=== PATIENT | female | born 1940 | race American Indian/Alaskan Native ===

== ENCOUNTER 2017-03-04 17:36 | Inpatient (IN) | payer MEDICARE, OTHER ==
--- NOTE | 2017-03-04 18:31 | ED PDOC ---
Arrival/HPI - General Historian: Patient - History of Present Illness Time/Duration: 1 week Symptom Onset: Gradual Symptom Course: Worsening Quality: Aching, Tightness Severity Level: 3 - General Chief Complaint: Lower Extremity Problem/Injury Time Seen by Provider: 03/04/17 17:44 - History of Present Illness Narrative History of Present Illness (Text): 03/04/17 18:28 76-year-old female presents today with a one-week history of right leg pain and swelling. Patient denies any recent trauma or injury. Denies numbness weakness or tingling in the extremity. Patient states she was seen by her orthopedist for right leg pain. Patient states the pain started one week ago when she went to stand up. Patient states she felt a pain in the calf at that time. Patient states over the past week the pain has worsened and the leg has become more and more swollen. The orthopedist prescribed ultrasound for the right leg. Patient was sent into the emergency room for evaluation. Patient states the pain is bearable at this point and does not want any medications for pain at present time. Patient denies a history of recent travel. Patient states she is very active at home. She denies smoking states she quit 17 years ago. Denies dizziness or weakness. No chest pain or shortness of breath. Denies fevers or chills. (Audra James) Past Medical History - Provider Review Nursing Documentation Reviewed: Yes - Travel History Have you recently traveled outside [place] w/in the past 3 mons?: No - Tetanus Immunization Tetanus Immunization: Unknown - Cardiac Hx Cardiac Disorders: No - Pulmonary Hx Chronic Obstructive Pulmonary Disease (COPD): Yes - Neurological Hx Neurological Disorder: No - HEENT Hx HEENT Disorder: No Hx Sinusitis: Yes - Renal Hx Renal Disorder: No - Endocrine/Metabolic Hx Endocrine Disorders: No - Hematological/Oncological Hx Blood Disorders: No - Integumentary Hx Dermatological Disorder: No - Musculoskeletal/Rheumatological Hx Back Pain: Yes - Gastrointestinal Hx Gastroesophageal Reflux: Yes - Genitourinary/Gynecological Hx Genitourinary Disorders: No - Psychiatric Hx Anxiety: Yes Hx Substance Use: No - Surgical History Hx Cholecystectomy: Yes Hx Tubal Ligation: Yes - Anesthesia Hx Anesthesia: Yes Hx Anesthesia Reactions: No Family/Social History - Physician Review Nursing Documentation Reviewed: Yes Family/Social History: Unknown Family HX Smoking Status: Former Smoker Hx Alcohol Use: No Hx Substance Use: No Allergies/Home Meds Allergies/Adverse Reactions: Allergies latex Allergy (Verified 02/17/17 15:01) Home Medications: Home Meds Medication Instructions Recorded Confirmed Amitriptyline [Elavil] 10 mg PO DAILY PRN 03/04/17 03/04/17 Ca/D3/Mag#11/Zinc/Propulsion Motor [employer] Generator Rep[employer]r/[place]/Bor 1 each PO QWK 03/04/17 03/04/17 [Caltrate 600+D Plus Tablet] Dexlansoprazole [Dexilant] 60 mg PO DAILY 03/04/17 03/04/17 Docusate [Colace] 100 mg PO BID 03/04/17 03/04/17 Fluticasone/Salmeterol 250/50 1 puff IH Q12 03/04/17 03/04/17 [Advair Diskus] Lactobacillus Acidophilus 1 each PO DAILY 03/04/17 03/04/17 [Acidophilus] Meclizine [Antivert] 12.5 mg PO DAILY PRN 03/04/17 03/04/17 Montelukast [Singulair] 10 mg PO DAILY PRN 03/04/17 03/04/17 Multivitamin with Folic Acid [One 400 mcg PO QWK 03/04/17 03/04/17 Daily Multivitamin Tablet] Polyethylene Glycol 3350 [Miralax] 17 gm PO QOTHERDAY 03/04/17 03/04/17 Sertraline [Zoloft] 50 mg PO DAILY 03/04/17 03/04/17 valACYclovir [Valtrex] 500 mg PO DAILY 03/04/17 03/04/17 Review of Systems - Review of Systems Constitutional: absent: Fatigue, Fevers Respiratory: absent: SOB, Cough Cardiovascular: absent: Chest Pain, Palpitations Gastrointestinal: absent: Abdominal Pain, Nausea, Vomiting Genitourinary Female: absent: Dysuria Musculoskeletal: Arthralgias Skin: absent: Rash, Pruritis Neurological: absent: Headache, Dizziness Psychiatric: absent: Anxiety, Depression Physical Exam Vital Signs Reviewed: Yes Temperature: Afebrile Blood Pressure: Normal Pulse: Regular Respiratory Rate: Normal Appearance: Positive for: Well-Appearing, Non-Toxic, Comfortable Pain Distress: None Mental Status: Positive for: Alert and Oriented X 3 - Systems Exam Head: Present: Atraumatic Mouth: Present: Moist Mucous Membranes Neck: Present: Normal Range of Motion Respiratory/Chest: Present: Clear to Auscultation, Good Air Exchange. No: Respiratory Distress, Accessory Muscle Use Cardiovascular: Present: Regular Rate and Rhythm, Normal S1, S2. No: Murmurs Lower Extremity: Present: Edema, CALF TENDERNESS, Tenderness (right leg; + edema and tense calf, no erythema; pain with passive ROM of ankle. edema extends into ankle. no palpable dorsalis pedis pulse on right foot. strong dorsalis pedis pulse on left foot. slightly decreased sensation to right foot/ leg. ), Swelling, Capillary Refill < 2 s, Other. No: Erythema, Deformity Neurological: Present: GCS=15, Speech Normal, Normal Sensory Function Skin: Present: Warm, Dry, Normal Color Psychiatric: Present: Alert, Oriented x 3 Vital Signs Temp Pulse Resp BP Pulse Ox 03/05/17 02:15 72 18 117/64 97 03/05/17 00:18 78 17 179/74 H 97 03/04/17 21:07 80 20 153/80 H 96 03/04/17 17:52 98.3 F 87 20 119/86 98 Medical Decision Making ED Course and Treatment: 03/05/17 02:07 Case discussed with patient's orthopedist, , who advices to measure intra-compartmental pressure using the [employer] pressure monitor. Patient tolerated the procedure without any difficulty. There was no evidence of compartmental syndrome as her pressure was 13. Patient will be placed on observation at [facility] [place] service. (Neeraj Pinzon) 03/04/17 18:32 76yr old female with 1 week of right leg pain and swelling. + calf tenderness. worsening pain and swelling over past 3 days. Venous duplex; no dvt case discussed with dr. rae who saw patient in office today and ordered duplex outpatient which showed hematoma to calf. pt with slightly decreased sensation, + edematous and tense right calf, weak pulse. pain with passive flexion. case discussed again with dr rea; he is concerned for possible development of compartment syndrome in case without fracture. he suggests CTA of lower leg for possible vascular injury case discussed with salesperson surgical appliances who saw patient at bedside; dr. araceli musa discussed case with dr. haji who spoke with dr. Gloria. percocet given for pain. Ct angio right lower leg; Impression: No aneurysmal dilatation. No dissection. No significant inflow disease 3 vessel runoff below the right knee with single vessel runoff into the right foot Three-vessel runoff below the left knee with 2 vessel runoff into the left foot discussed CT results with the radiologist dr. weaver. [employer] pressure monitor was used to check intra-compartmental pressure in right lower leg. pressure 13. no evidence of compartment syndrome. all results were discussed in depth with dr. rea; he would like patient to be admitted observational status to hospitalist service with him on consult. pt reassessment pt now c/o epigastric pain, burning after percocet; pepcid given. pt states she hasnt eaten in hours and percocet always upsets the stomach. case discussed with dr. lai; accepts observational status admission for right leg pain/swelling. impression; leg pain admit observational status to med/surg. (Audra James) - Lab Interpretations Lab Results: 03/04/17 19:45 03/04/17 19:45 Lab Results 03/04/17 21:10: Blood Type Confirm O NEGATIVE 03/04/17 20:31: Total Creatine Kinase 71 03/04/17 19:45: WBC 10.2, RBC 4.00, Hgb 11.8 L, Hct 35.5 L, MCV 88.8, MCH 29.5, MCHC 33.2, RDW 13.9, Plt Count 399, MPV 9.9, Gran % 58.5, Lymph % (Auto) 30.7, Wirt % (Auto) 7.5 H, Eos % (Auto) 2.3, Baso % (Auto) 1.0, Gran # 5.97, Lymph # 3.1, Wirt # 0.8 H, Eos # 0.2, Baso # 0.10 03/04/17 19:45: Blood Type O NEGATIVE, Antibody Screen Negative, BBK History Checked No verified bt 03/04/17 19:45: Sodium 141, Potassium 3.7, Chloride 105, Carbon Dioxide 26, Anion Gap 14, BUN 12, Creatinine 0.7, Est GFR ( Amer) > 60, Est GFR (Non- Af Amer) > 60, Random Glucose 101, Calcium 8.8, Total Bilirubin 0.3, AST 39, ALT 28, Alkaline Phosphatase 111, Total Protein 8.1, Albumin 3.9, Globulin 4.2, Albumin/Globulin Ratio 0.9 L 03/04/17 19:45: PT 10.4, INR 0.96, APTT 29.1 - RAD Interpretation Radiology Orders: 03/04/17 18:13 DUPLEX LOWER EXTRM VEIN RIGHT [US] Stat 03/04/17 19:50 CHEST PORTABLE [RAD] Stat 03/04/17 21:28 EXT LOWER WITH CONTRAST RIGHT [CT] Stat - Medication Orders Current Medication Orders: Discontinued Medications Famotidine (Pepcid) 20 mg IVP STAT STA Stop: 03/05/17 02:04 Last Admin: 03/05/17 02:14 Dose: 20 mg Ondansetron HCl (Zofran Odt) 4 mg PO STAT STA Stop: 03/05/17 00:11 Last Admin: 03/05/17 00:25 Dose: 4 mg Oxycodone/Acetaminophen (Percocet 5/325 Mg Tab) 1 tab PO STAT STA Stop: 03/05/17 00:11 Last Admin: 03/05/17 00:25 Dose: 1 tab Disposition/Present on Arrival - Present on Arrival Any Indicators Present on Arrival: No History of DVT/PE: No History of Uncontrolled Diabetes: No Urinary Catheter: No History of Decub. Ulcer: No History Surgical Site Infection Following: None - Disposition Have Diagnosis and Disposition been Completed?: Yes Disposition Time: 02:30 Patient Plan: Observation - Disposition Diagnosis: Leg pain Disposition: HOSPITALIZED Condition: FAIR
[2017-03-04 20:02] LABS: EOS # 0.2 (0.0-0.7); EOS % 2.3 % (1.5-5.0); GRAN # 5.97 (1.4-6.5); GRAN % 58.5 % (50.0-68.0); HEMOGLOBIN 11.8 gm/dL (12.0-16.0); LYMPH # 3.1 (1.2-3.4); LYMPH % 30.7 % (22.0-35.0); MEAN CELL VOLUME 88.8 fL (80.0-105.0); MEAN CORPUSCULAR HEMOGLOBIN 29.5 pg (25.0-35.0); MEAN CORPUSCULAR HGB CONC 33.2 g/dl (31.0-37.0); MEAN PLATELET VOLUME 9.9 fl (7.0-11.0); MONO # 0.8 (0.1-0.6); MONO % 7.5 % (1.0-6.0); PLATELET COUNT 399 10^3/uL (120.0-450.0); RED CELL DISTRIBUTION WIDTH 13.9 % (11.5-14.5); WHITE BLOOD COUNT 10.2 10^3/ul (4.5-11.0)
[2017-03-04 20:06] LABS: ALB/GLOB RATIO 0.9 (1.1-1.8); ALBUMIN 3.9 g/dL (3.0-4.8); ALT/SGPT 28 U/L (7-56); AST/SGOT 39 U/L (15-39); BLOOD UREA NITROGEN 12 mg/dL (7-21); GFR AFRICAN-AMERICAN > 60; GFR NON-AFRICAN AMERICAN > 60
[2017-03-04 20:09] LABS: CALCIUM 8.8 mg/dL (8.4-10.5)
[2017-03-04 20:15] LABS: INR 0.96 (0.93-1.08); PARTIAL THROMBOPLASTIN TIME 29.1 Seconds (23.7-30.8); PROTHROMBIN TIME 10.4 Seconds (9.9-11.8)
--- NOTE | 2017-03-04 20:46 | CARD ---
APPROVED REPORT EKG Measurement Heart [id number] <Conclusion> Normal sinus rhythm Normal ECG
[2017-03-05] MEDS ORDERED: Oxycodone/Acetaminophen 5/325 mg Tab PO STA (00:10)
--- NOTE | 2017-03-05 03:17 | CP.PCM.HP ---
<MAE MOSLEY - Last Filed: 03/05/17 03:03> History of Present Illness - History of Present Illness History of Present Illness: 76 yo F with PMHx of gastritis/GERD, sinusitis, and COPD was see in office by Dr. Mcgraw and instructed pt to go to ED for concerns of compartment syndrome without fracture. Pt c/o right leg pain localized in the calf region and swelling for the past week of insidious onset. Pt denied any LE numbness and weakness. Pt states that the pain and swelling has progressively worsened over the last week, but is active and ambulating at home. Prior to being examined, venous doppler US was ordered and was negative for DVT. RLE pressure was also obtained and was normal. Pt is comlaining of some abdominal pain in the ED due to taking Percocet on an empty stomach. Pain relieved with PO food intake. Pt denied CP, SOB, n/v/d, chills, or paresthesias. PMHx: gastritis/GERD, sinusitis, COPD Surg: cholecystectomy, tubal ligation FHx: Bladder cancer All: latex SH: Social EtOH use, Denied tobacco or illicit drug use Meds: reviewed and as per chart Present on Admission - Present on Admission Any Indicators Present on Admission: No Review of Systems - Review of Systems All systems: reviewed and no additional remarkable complaints except (12 point ROS negative other than what is stated in HPI) Past Patient History - Tetanus Immunizations Tetanus Immunization: Unknown - Past Social History Smoking Status: Former Smoker - CARDIAC Hx Cardiac Disorders: No - PULMONARY Hx Chronic Obstructive Pulmonary Disease (COPD): Yes - NEUROLOGICAL Hx Neurological Disorder: No - HEENT Hx HEENT Problems: No Hx Sinusitis: Yes - RENAL Hx Chronic Kidney Disease: No - ENDOCRINE/METABOLIC Hx Endocrine Disorders: No - HEMATOLOGICAL/ONCOLOGICAL Hx Blood Disorders: No - INTEGUMENTARY Hx Dermatological Problems: No - MUSCULOSKELETAL/RHEUMATOLOGICAL Hx Back Pain: Yes - GASTROINTESTINAL Hx Gastroesophageal Reflux: Yes - GENITOURINARY/GYNECOLOGICAL Hx Genitourinary Disorders: No - PSYCHIATRIC Hx Anxiety: Yes Hx Substance Use: No - SURGICAL HISTORY Hx Cholecystectomy: Yes Hx Tubal Ligation: Yes - ANESTHESIA Hx Anesthesia: Yes Hx Anesthesia Reactions: No Meds Allergies/Adverse Reactions: Allergies Allergy/AdvReac Type Severity Reaction Status Date / Time latex Allergy Verified 02/17/17 15:01 Physical Exam - Constitutional Appears: No Acute Distress - Head Exam Head Exam: ATRAUMATIC, NORMOCEPHALIC - Eye Exam Eye Exam: EOMI, PERRL - ENT Exam ENT Exam: Mucous Membranes Moist - Neck Exam Neck exam: Positive for: Full Rom. Negative for: Lymphadenopathy, Tenderness, Thyromegaly - Respiratory Exam Respiratory Exam: Clear to Auscultation Bilateral. absent: Rales, Rhonchi, Wheezes - Cardiovascular Exam Cardiovascular Exam: RRR, +S1, +S2. absent: Diastolic murmur, Gallop, Rubs, Systolic Murmur - GI/Abdominal Exam GI & Abdominal Exam: Soft. absent: Distended, Guarding, Rebound, Tenderness - Extremities Exam Additional comments: 4cm area of bruising on R gastroc, RLE swelling, R gastroc tender to palpation, b/l DP palpable, sensation intact b/l LE - Neurological Exam Neurological exam: Alert, Oriented x3 - Skin Skin Exam: Dry, Intact, Normal Color, Warm Results - Vital Signs Recent Vital Signs: Last Vital Signs Temp 98.3 F 03/04/17 17:52 Pulse 72 03/05/17 02:15 Resp 18 03/05/17 02:15 BP 117/64 03/05/17 02:15 Pulse Ox 97 03/05/17 02:15 - Labs Result Diagrams: 03/04/17 19:45 03/04/17 19:45 Assessment & Plan - Assessment and Plan (Free Text) Assessment: 76 yo F with PMHx of GERD, COPD, and sinusitis will be admitted to observation for evaluation and treatment for hematoma r/o compartment syndrome of the RLE. 1. Hematoma r/o compartment syndrome, right lower leg -Ortho Consulted, will see pt in AM -No evidence of compartmental syndrome, pressure was 13 -Venous duplex showed no evidence of DVT -CT Angio showed no aneurysmal dilatation, dissection, or significant inflow disease -Tylenol, Toradol, Morphine for mild, mod, and severe pain 2. Gastritis -Maalox PRN -Protonix 40 mg daily -Avoid inciting medications -HHD 3. COPD -Cont Singulair and brovana -Maintain O2 sat >90% 4. GI/DVT PPx -Protonix -Ambulate Pt seen and discussed in detail with Dr. Richardson. <Deborah Richardson - Last Filed: 03/05/17 03:58> Results - Vital Signs Recent Vital Signs: Last Vital Signs Temp 98.3 F 03/04/17 17:52 Pulse 72 03/05/17 02:15 Resp 18 03/05/17 02:15 BP 117/64 03/05/17 02:15 Pulse Ox 97 03/05/17 02:15 - Labs Result Diagrams: 03/04/17 19:45 03/04/17 19:45 Attending/Attestation - Attestation I have personally seen and examined this patient.: Yes I have fully participated in the care of the patient.: Yes I have reviewed all pertinent clinical information: Yes Notes (Text): 03/05/17 03:58 Patient was seen when she was in bed # 9 in the ER. Agree with history, physical examination,assessment and plan.
[2017-03-05] MEDS ORDERED: Alum-Mag Hydrox-Simethicone Susp (30 mL) PO STA (03:19)
[2017-03-05 04:05] LABS: MAGNESIUM 1.8 mg/dL (1.7-2.2)
[2017-03-05 04:19] LABS: TROPONIN I < 0.01 ng/mL
[2017-03-05 07:12] VITALS: BMI 32.6
--- NOTE | 2017-03-05 07:48 | RAD ---
HISTORY: leg pain COMPARISON: No prior. FINDINGS: LUNGS: The lungs are well inflated and. PLEURA: No significant pleural effusion identified, no pneumothorax apparent. CARDIOVASCULAR: Normal. OSSEOUS STRUCTURES: No significant abnormalities. VISUALIZED UPPER ABDOMEN: Normal. OTHER FINDINGS: None. IMPRESSION: No active pulmonary disease.
[2017-03-05] MEDS: Arformoterol 15 mcg/2 ml Inh Sol IH SCH ×2 (08:20→19:53)
[2017-03-05] MEDS: Budesonide 0.5 mg/2 ml Inhal Susp UD IH SCH ×2 (08:20→19:53)
[2017-03-05] MEDS: Pantoprazole 40 mg EC Tab PO SCH (09:29)
[2017-03-05] MEDS: POLYETHYLENE GLYCOL 3350 17 GM/Dose PACKET PO SCH (09:29)
[2017-03-05] MEDS: Lactobacillus Acidophilus 500 MU Cap PO SCH (09:29)
[2017-03-05] MEDS: Enoxaparin 40 mg Syringe SC SCH (09:31)
--- NOTE | 2017-03-05 09:53 | US ---
PROCEDURE: Right lower extremity venous US HISTORY: Leg pain and swelling. Evaluate for DVT. PHYSICIAN(S): Juno Hyatt M.D. TECHNIQUE: Duplex sonography and color-flow Doppler with graded compression were used to evaluate the deep venous system of the right lower extremity. The tibial veins are not well seen. FINDINGS: The visualized deep venous system of the right lower extremity is sonographically normal and compressible. Normal waveforms and augmentation are seen. There is no sonographic evidence for deep venous thrombosis in the visualized segments of the right lower extremity. IMPRESSION: 1. No sonographic evidence for deep venous thrombosis in the visualized segments of the right lower extremity.
[2017-03-05] MEDS ORDERED: Fluticasone-Salmeterol 250-50mcg Diskus IH SCH (10:00)
[2017-03-05] MEDS ORDERED: [UNRECOGNIZED DRUG - OTHER] PO SCH (10:00)
[2017-03-05] MEDS ORDERED: [UNRECOGNIZED DRUG - OTHER] PO SCH (10:00)
[2017-03-05] MEDS ORDERED: MULTIVITAMIN WITH FOLIC ACID PO SCH (10:00)
--- NOTE | 2017-03-05 15:13 | CP.PCM.PN ---
Subjective - Date & Time of Evaluation Date of Evaluation: 03/05/17 Time of Evaluation: 15:07 - Subjective Subjective: Pt awake, alert. Ambulating with cane. Complaining of right calf pain. Pt denies any numbness or tingling in right lower extremity. Denies any weakness. Afebrile, VSS RLE: calf relatively soft but tender NVI with 5/5 strength in all muscle groups no sensory deficits foot warm and well perfused knee with no obvious effusion posterior tenderness to palpation CT angio did not show any evidence of acute vascular compromise Plan: Exam not consistent with compartment syndrome. May be secondary to ruptured popliteal cyst? Will order MRI of R knee and calf Objective - Vital Signs/Intake and Output Vital Signs (last 24 hours): Temp Pulse Resp BP Pulse Ox 98.8 F 90 20 141/84 94 L 03/05/17 07:30 03/05/17 08:24 03/05/17 07:30 03/05/17 07:30 03/05/17 07:30 Intake and Output: 03/05/17 03/05/17 06:59 18:59 Intake Total 900 Balance 900 - Medications Medications: Current Medications Acetaminophen (Tylenol 325mg Tab) 650 mg PO Q6H PRN PRN Reason: Pain, Mild (1-3) Last Admin: 03/05/17 09:37 Dose: 650 mg Amitriptyline HCl (Elavil) 10 mg PO DAILY PRN PRN Reason: GI distress Arformoterol Tartrate (Brovana) 15 mcg IH [id number] [facility] Last Admin: 03/05/17 08:20 Dose: 15 mcg Budesonide (Pulmicort Respules) 0.5 mg IH [id number] [facility] Last Admin: 03/05/17 08:20 Dose: 0.5 mg Docusate Sodium (Colace) 100 mg PO BID [facility] Last Admin: 03/05/17 09:29 Dose: 100 mg Enoxaparin Sodium (Lovenox) 40 mg SC DAILY [facility] PRN Reason: Protocol Last Admin: 03/05/17 09:31 Dose: 40 mg Ketorolac Tromethamine (Toradol) 15 mg IVP Q6H PRN PRN Reason: Pain, moderate (4-7) Lactobacillus Acidophilus (Bacid Acidophilus) 1 cap PO DAILY [facility] Last Admin: 03/05/17 09:29 Dose: 1 cap Meclizine HCl (Antivert) 12.5 mg PO DAILY PRN PRN Reason: Dizziness Montelukast Sodium (Singulair) 10 mg PO DAILY PRN PRN Reason: Shortness of Breath Morphine Sulfate (Morphine) 4 mg IVP Q6H PRN PRN Reason: Pain, severe (8-10) Non-Formulary Medication (Ca/D3/Mag#11/Zinc/Hospice Home Care Coordinator/[place]/Bor [Caltrate 600+D Plus Tablet]) 1 each PO QWK [facility] Last Admin: 03/05/17 09:31 Dose: Not Given Non-Formulary Medication (Multivitamin With Folic Acid [One Daily Multivitamin Tablet]) 400 mcg PO QWK [facility] Last Admin: 03/05/17 09:32 Dose: Not Given Pantoprazole Sodium (Protonix Ec Tab) 40 mg PO ACB [facility] Last Admin: 03/05/17 09:29 Dose: 40 mg Polyethylene Glycol (Miralax) 17 gm PO QOTHERDAY [facility] Last Admin: 03/05/17 09:29 Dose: 17 gm Sertraline HCl (Zoloft) 50 mg PO DAILY [facility] Last Admin: 03/05/17 09:29 Dose: 50 mg Valacyclovir HCl (Valtrex) 500 mg PO DAILY [facility] PRN Reason: Protocol Last Admin: 03/05/17 09:32 Dose: 500 mg - Labs Labs: PT 10.4 Seconds (9.9-11.8) 03/04/17 19:45 INR 0.96 (0.93-1.08) 03/04/17 19:45 APTT 29.1 Seconds (23.7-30.8) 03/04/17 19:45
[2017-03-06] MEDS: Arformoterol 15 mcg/2 ml Inh Sol IH SCH ×2 (07:28→19:20)
[2017-03-06] MEDS: Budesonide 0.5 mg/2 ml Inhal Susp UD IH SCH ×2 (07:28→19:20)
[2017-03-06 08:05] LABS: HEMOGLOBIN 12.3 gm/dL (12.0-16.0); MEAN CELL VOLUME 89.5 fL (80.0-105.0); MEAN CORPUSCULAR HEMOGLOBIN 29.2 pg (25.0-35.0); MEAN CORPUSCULAR HGB CONC 32.6 g/dl (31.0-37.0); MEAN PLATELET VOLUME 10.2 fl (7.0-11.0); RBC 4.21 10^6/uL (3.5-6.1); RED CELL DISTRIBUTION WIDTH 14.3 % (11.5-14.5)
[2017-03-06 08:15] LABS: ALB/GLOB RATIO 0.9 (1.1-1.8); ALBUMIN 4.2 g/dL (3.0-4.8); ALT/SGPT 34 U/L (7-56); AST/SGOT 48 U/L (15-39); BLOOD UREA NITROGEN 9 mg/dL (7-21); GFR AFRICAN-AMERICAN > 60; GFR NON-AFRICAN AMERICAN > 60
[2017-03-06] MEDS ORDERED: Gadodiamide 287 MG/ML VIAL (15ML) IV ONE (10:16)
[2017-03-06] MEDS: Lactobacillus Acidophilus 500 MU Cap PO SCH (11:07)
[2017-03-06] MEDS: Pantoprazole 40 mg EC Tab PO SCH (11:07)
[2017-03-06] MEDS: Enoxaparin 40 mg Syringe SC SCH (11:07)
--- NOTE | 2017-03-06 15:30 | MRI ---
PROCEDURE: MRI Right Knee HISTORY: Pain. COMPARISON: None available. TECHNIQUE: Multiecho multiplanar sequences were performed through the right knee. FINDINGS: ANTERIOR CRUCIATE LIGAMENT:: Intact. POSTERIOR CRUCIATE LIGAMENT:: Intact. MEDIAL MENISCUS:: Intact. LATERAL MENISCUS:: There is a linear tear in the anterior horn of the lateral meniscus MEDIAL COLLATERAL LIGAMENT:: Intact. LATERAL COLLATERAL LIGAMENT COMPLEX:: Intact. QUADRICEPS TENDON:: Intact. PATELLAR TENDON:: Intact. CARTILAGE:: Intact. JOINT FLUID:: Small joint effusion. There is a synovial cyst posterior to the PCL measuring 29 mm in height 15 mm AP and 10 mm wide. OSSEOUS STRUCTURES:: Intact. OTHER FINDINGS: There is muscular edema and a focal hemorrhage in the medial head of the gastrocnemius. This is best seen on axial image 34 series 4 IMPRESSION: Linear tear in the anterior horn of the lateral meniscus. Synovial cyst posterior to the PCL. Muscular edema and focal hemorrhage in the medial head of the gastrocnemius
--- NOTE | 2017-03-06 15:38 | MRI ---
PROCEDURE: MRI of the right lower extremity with and without contrast HISTORY: Evaluate hematoma of right calf COMPARISON: TECHNIQUE: MRI of the right lower extremity was performed in multiple planes using multiple pulse sequences including postcontrast imaging. 15 cc of Omniscan were injected FINDINGS: The study shows a hematoma in the medial head of the gastrocnemius measuring 18 mm AP by 40 mm wide by 96 mm in length. There is surrounding edema. There is no evidence of abnormal enhancement. The hematoma is seen on the surface of the muscle just beneath the fascia layer. There is also some fascial edema and subcutaneous edema IMPRESSION: Hematoma in the medial head of the gastrocnemius with extensive surrounding edema
--- NOTE | 2017-03-06 21:40 | CP.PCM.PN ---
<RACHANA JOSEPH - Last Filed: 03/06/17 21:37> Subjective - Date & Time of Evaluation Date of Evaluation: 03/06/17 Time of Evaluation: 10:00 - Subjective Subjective: Medicine Progress Note: Pt see and assessed at bedside. Pt had no new complaints this AM. She reports continued pain in her RLE but that the swelling has gone down, in her opinion. She denies fevers, headaches, changes in vision, shortness of breath, chest pain , abdominal pain, N/V or diarrhea. Objective - Vital Signs/Intake and Output Vital Signs (last 24 hours): Temp Pulse Resp BP Pulse Ox 99.0 F 74 20 142/82 96 03/06/17 16:00 03/06/17 16:00 03/06/17 16:00 03/06/17 16:00 03/06/17 16:00 Intake and Output: 03/06/17 03/07/17 18:59 06:59 Intake Total 600 Balance 600 - Medications Medications: Current Medications Acetaminophen (Tylenol 325mg Tab) 650 mg PO Q6H PRN PRN Reason: Pain, Mild (1-3) Last Admin: 03/05/17 09:37 Dose: 650 mg Amitriptyline HCl (Elavil) 10 mg PO DAILY PRN PRN Reason: GI distress Arformoterol Tartrate (Brovana) 15 mcg IH [id number] [facility] Last Admin: 03/06/17 19:20 Dose: 15 mcg Budesonide (Pulmicort Respules) 0.5 mg IH [id number] [facility] Last Admin: 03/06/17 19:20 Dose: 0.5 mg Docusate Sodium (Colace) 100 mg PO BID [facility] Last Admin: 03/06/17 17:12 Dose: 100 mg Ketorolac Tromethamine (Toradol) 15 mg IVP Q6H PRN PRN Reason: Pain, moderate (4-7) Last Admin: 03/06/17 11:08 Dose: 15 mg Lactobacillus Acidophilus (Bacid Acidophilus) 1 cap PO DAILY [facility] Last Admin: 03/06/17 11:07 Dose: 1 cap Meclizine HCl (Antivert) 12.5 mg PO DAILY PRN PRN Reason: Dizziness Last Admin: 03/06/17 15:08 Dose: 12.5 mg Montelukast Sodium (Singulair) 10 mg PO DAILY PRN PRN Reason: Shortness of Breath Morphine Sulfate (Morphine) 4 mg IVP Q6H PRN PRN Reason: Pain, severe (8-10) Non-Formulary Medication (Ca/D3/Mag#11/Zinc/Plan Checker/Alton/Bor [Caltrate 600+D Plus Tablet]) 1 each PO QWK [facility] Last Admin: 03/05/17 09:31 Dose: Not Given Non-Formulary Medication (Multivitamin With Folic Acid [One Daily Multivitamin Tablet]) 400 mcg PO QWK [facility] Last Admin: 03/05/17 09:32 Dose: Not Given Pantoprazole Sodium (Protonix Ec Tab) 40 mg PO ACB [facility] Last Admin: 03/06/17 11:07 Dose: 40 mg Polyethylene Glycol (Miralax) 17 gm PO QOTHERDAY [facility] Last Admin: 03/05/17 09:29 Dose: 17 gm Sertraline HCl (Zoloft) 50 mg PO DAILY [facility] Last Admin: 03/06/17 11:08 Dose: 50 mg Valacyclovir HCl (Valtrex) 500 mg PO DAILY [facility] PRN Reason: Protocol Last Admin: 03/06/17 11:07 Dose: 500 mg - Labs Labs: PT 10.4 Seconds (9.9-11.8) 03/04/17 19:45 INR 0.96 (0.93-1.08) 03/04/17 19:45 APTT 29.1 Seconds (23.7-30.8) 03/04/17 19:45 - Constitutional Appears: No Acute Distress - Head Exam Head Exam: NORMAL INSPECTION, NORMOCEPHALIC - Eye Exam Eye Exam: EOMI, Normal appearance - ENT Exam ENT Exam: Mucous Membranes Moist, Normal Exam - Neck Exam Neck Exam: Full ROM - Respiratory Exam Respiratory Exam: Clear to Ausculation Bilateral, Wheezes, NORMAL BREATHING PATTERN. absent: Rales, Rhonchi - Cardiovascular Exam Cardiovascular Exam: REGULAR RHYTHM, RRR, +S1, +S2. absent: Murmur - GI/Abdominal Exam GI & Abdominal Exam: Soft, Normal Bowel Sounds. absent: Distended, Firm, Tenderness - Extremities Exam Extremities Exam: Calf Tenderness, Normal Capillary Refill. absent: Pedal Edema Additional comments: R calf and knee tenderness - Neurological Exam Neurological Exam: Alert, Awake, Oriented x3 - Psychiatric Exam Psychiatric exam: Normal Affect, Normal Mood - Skin Skin Exam: Dry, Intact, Normal Color, Warm Assessment and Plan - Assessment and Plan (Free Text) Assessment: Mrs. Bishop is a 76 year old female a with past medical history of GERD, COPD, and sinusitis who presented with right calf tenderness and swelling presumed to be compartment syndrome. Plan: 1. Right Lower Extremity Tenderness -Ortho Consulted, all recommendations appreciated -No evidence of compartmental syndrome, with a pressure of 13 -Venous duplex showed no evidence of DVT -CT Angio showed no aneurysmal dilatation, dissection, or significant inflow disease -MRI of R knee showed linear tear in anterior horn of lateral meniscus and synovial cyst posterior to PCL -MRI of RLE showed hematoma in head of gastrocnemius with extensive surrounding edema -will await further ortho recommendations -cont PT/OT -Tylenol, Toradol, Morphine for mild, moderate, and severe pain 2. Gastritis -Maalox PRN -Protonix 40 mg daily -HHD -Avoid inciting medications 3. COPD -Cont home Singulair and Brovana -Maintain O2 sat >90% 4. GI/DVT Prophylaxis -Protonix/Ambulate Patient seen and case discussed in detail with attending, Dr. Babcock. <Yoko CESAR,[facility] - Last Filed: 03/07/17 15:21> Objective - Vital Signs/Intake and Output Vital Signs (last 24 hours): Temp Pulse Resp BP Pulse Ox 99.4 F 85 20 160/76 H 95 03/07/17 07:30 03/07/17 07:30 03/07/17 07:30 03/07/17 07:30 03/07/17 07:30 Intake and Output: 03/07/17 03/07/17 06:59 18:59 Intake Total 1320 Balance 1320 - Medications Medications: Current Medications Acetaminophen (Tylenol 325mg Tab) 650 mg PO Q6H PRN PRN Reason: Pain, Mild (1-3) Last Admin: 03/05/17 09:37 Dose: 650 mg Al Hydrox/Mg Hydrox/Simethicone (Maalox Plus 30 Ml) 15 ml PO Q8H PRN PRN Reason: Indigestion / Heartburn Amitriptyline HCl (Elavil) 10 mg PO DAILY PRN PRN Reason: GI distress Arformoterol Tartrate (Brovana) 15 mcg IH [id number] [facility] Last Admin: 03/07/17 07:39 Dose: 15 mcg Budesonide (Pulmicort Respules) 0.5 mg IH [id number] [facility] Last Admin: 03/07/17 07:39 Dose: 0.5 mg Docusate Sodium (Colace) 100 mg PO BID [facility] Last Admin: 03/07/17 10:24 Dose: 100 mg Ketorolac Tromethamine (Toradol) 15 mg IVP Q6H PRN PRN Reason: Pain, moderate (4-7) Last Admin: 03/06/17 11:08 Dose: 15 mg Lactobacillus Acidophilus (Bacid Acidophilus) 1 cap PO DAILY [facility] Last Admin: 03/07/17 10:24 Dose: 1 cap Meclizine HCl (Antivert) 12.5 mg PO DAILY PRN PRN Reason: Dizziness Last Admin: 03/06/17 15:08 Dose: 12.5 mg Montelukast Sodium (Singulair) 10 mg PO DAILY PRN PRN Reason: Shortness of Breath Morphine Sulfate (Morphine) 4 mg IVP Q6H PRN PRN Reason: Pain, severe (8-10) Last Admin: 03/07/17 14:02 Dose: 4 mg Non-Formulary Medication (Ca/D3/Mag#11/Zinc/Plan Checker/Alton/Bor [Caltrate 600+D Plus Tablet]) 1 each PO QWK [facility] Last Admin: 03/05/17 09:31 Dose: Not Given Non-Formulary Medication (Multivitamin With Folic Acid [One Daily Multivitamin Tablet]) 400 mcg PO QWK [facility] Last Admin: 03/05/17 09:32 Dose: Not Given Pantoprazole Sodium (Protonix Ec Tab) 40 mg PO ACB [facility] Last Admin: 03/07/17 08:15 Dose: 40 mg Polyethylene Glycol (Miralax) 17 gm PO QOTHERDAY [facility] Last Admin: 03/07/17 10:25 Dose: 17 gm Sertraline HCl (Zoloft) 50 mg PO DAILY [facility] Last Admin: 03/07/17 10:24 Dose: 50 mg Valacyclovir HCl (Valtrex) 500 mg PO DAILY [facility] PRN Reason: Protocol Last Admin: 03/07/17 10:24 Dose: 500 mg - Labs Labs: 03/07/17 07:00 03/07/17 07:00 PT 10.4 Seconds (9.9-11.8) 03/04/17 19:45 INR 0.96 (0.93-1.08) 03/04/17 19:45 APTT 29.1 Seconds (23.7-30.8) 03/04/17 19:45 Attending/Attestation - Attestation I have personally seen and examined this patient.: Yes I have fully participated in the care of the patient.: Yes I have reviewed all pertinent clinical information, including history, physical exam and plan: Yes Notes (Text): 03/07/17 15:21 Patient was seen and examined with medical coder. Labs and images were reviewed Agreed with resident assessment and plan. Management plan was discussed in detail with patient Education was provided.
[2017-03-07 07:26] LABS: HEMOGLOBIN 11.6 gm/dL (12.0-16.0); MEAN CELL VOLUME 88.1 fL (80.0-105.0); MEAN CORPUSCULAR HEMOGLOBIN 29.3 pg (25.0-35.0); MEAN CORPUSCULAR HGB CONC 33.2 g/dl (31.0-37.0); RBC 3.96 10^6/uL (3.5-6.1); RED CELL DISTRIBUTION WIDTH 14.1 % (11.5-14.5)
[2017-03-07] MEDS: Budesonide 0.5 mg/2 ml Inhal Susp UD IH SCH (07:39)
[2017-03-07] MEDS: Arformoterol 15 mcg/2 ml Inh Sol IH SCH (07:39)
[2017-03-07 07:48] LABS: ALB/GLOB RATIO 0.8 (1.1-1.8); ALBUMIN 3.5 g/dL (3.0-4.8); ALT/SGPT 27 U/L (7-56); AST/SGOT 45 U/L (15-39); BLOOD UREA NITROGEN 10 mg/dL (7-21); CALCIUM 8.8 mg/dL (8.4-10.5); GFR AFRICAN-AMERICAN > 60; GFR NON-AFRICAN AMERICAN > 60
[2017-03-07] MEDS: Pantoprazole 40 mg EC Tab PO SCH (08:15)
[2017-03-07] MEDS: Lactobacillus Acidophilus 500 MU Cap PO SCH (10:24)
[2017-03-07] MEDS: POLYETHYLENE GLYCOL 3350 17 GM/Dose PACKET PO SCH (10:25)
[2017-03-07] MEDS: Morphine 4 mg/ml ISec IVP PRN (14:02)
[2017-03-07] MEDS ORDERED: Alum-Mag Hydrox-Simethicone Susp (30 mL) PO ONE (15:04)
[2017-03-07] MEDS ORDERED: Alum-Mag Hydrox-Simethicone Susp (30 mL) PO PRN (15:05)
--- NOTE | 2017-03-07 20:05 | CP.PCM.PN ---
<RACHANA JOSEPH - Last Filed: 03/07/17 20:01> Subjective - Date & Time of Evaluation Date of Evaluation: 03/07/17 Time of Evaluation: 10:55 - Subjective Subjective: Medicine Progress Note: Pt see and assessed at bedside. Pt continues to complain of pain in her right calf and states that she does not have good balance due to the pain. She also reports that she is constipated in comparison to her normal BM schedule at home. She has no other complaints at this time. She denies fevers, headaches, changes in vision, shortness of breath, chest pain, palpitations, abdominal pain , N/V or diarrhea. Objective - Vital Signs/Intake and Output Vital Signs (last 24 hours): Temp Pulse Resp BP Pulse Ox 98.5 F 91 H 18 130/65 93 L 03/07/17 17:31 03/07/17 17:31 03/07/17 17:31 03/07/17 17:31 03/07/17 17:31 Intake and Output: 03/07/17 03/08/17 18:59 06:59 Intake Total 1196 Balance 1196 - Medications Medications: Current Medications Acetaminophen (Tylenol 325mg Tab) 650 mg PO Q6H PRN PRN Reason: Pain, Mild (1-3) Last Admin: 03/05/17 09:37 Dose: 650 mg Al Hydrox/Mg Hydrox/Simethicone (Maalox Plus 30 Ml) 15 ml PO Q8H PRN PRN Reason: Indigestion / Heartburn Amitriptyline HCl (Elavil) 10 mg PO DAILY PRN PRN Reason: GI distress Arformoterol Tartrate (Brovana) 15 mcg IH [id number] [facility] Last Admin: 03/07/17 07:39 Dose: 15 mcg Budesonide (Pulmicort Respules) 0.5 mg IH [id number] [facility] Last Admin: 03/07/17 07:39 Dose: 0.5 mg Docusate Sodium (Colace) 100 mg PO BID [facility] Last Admin: 03/07/17 17:47 Dose: 100 mg Ketorolac Tromethamine (Toradol) 15 mg IVP Q6H PRN PRN Reason: Pain, moderate (4-7) Last Admin: 03/06/17 11:08 Dose: 15 mg Lactobacillus Acidophilus (Bacid Acidophilus) 1 cap PO DAILY [facility] Last Admin: 03/07/17 10:24 Dose: 1 cap Meclizine HCl (Antivert) 12.5 mg PO DAILY PRN PRN Reason: Dizziness Last Admin: 03/06/17 15:08 Dose: 12.5 mg Montelukast Sodium (Singulair) 10 mg PO DAILY PRN PRN Reason: Shortness of Breath Morphine Sulfate (Morphine) 4 mg IVP Q6H PRN PRN Reason: Pain, severe (8-10) Last Admin: 03/07/17 14:02 Dose: 4 mg Non-Formulary Medication (Ca/D3/Mag#11/Zinc/Intelligence Senior Sergeant/Alton/Bor [Caltrate 600+D Plus Tablet]) 1 each PO QWK [facility] Last Admin: 03/05/17 09:31 Dose: Not Given Non-Formulary Medication (Multivitamin With Folic Acid [One Daily Multivitamin Tablet]) 400 mcg PO QWK [facility] Last Admin: 03/05/17 09:32 Dose: Not Given Pantoprazole Sodium (Protonix Ec Tab) 40 mg PO ACB [facility] Last Admin: 03/07/17 08:15 Dose: 40 mg Polyethylene Glycol (Miralax) 17 gm PO QOTHERDAY [facility] Last Admin: 03/07/17 10:25 Dose: 17 gm Sertraline HCl (Zoloft) 50 mg PO DAILY [facility] Last Admin: 03/07/17 10:24 Dose: 50 mg Valacyclovir HCl (Valtrex) 500 mg PO DAILY [facility] PRN Reason: Protocol Last Admin: 03/07/17 10:24 Dose: 500 mg - Labs Labs: 03/07/17 07:00 03/07/17 07:00 PT 10.4 Seconds (9.9-11.8) 03/04/17 19:45 INR 0.96 (0.93-1.08) 03/04/17 19:45 APTT 29.1 Seconds (23.7-30.8) 03/04/17 19:45 - Constitutional Appears: No Acute Distress - Head Exam Head Exam: NORMAL INSPECTION, NORMOCEPHALIC - Eye Exam Eye Exam: EOMI, Normal appearance - ENT Exam ENT Exam: Mucous Membranes Moist, Normal Exam - Neck Exam Neck Exam: Full ROM - Respiratory Exam Respiratory Exam: Clear to Ausculation Bilateral, NORMAL BREATHING PATTERN. absent: Rales, Rhonchi, Wheezes, Respiratory Distress - Cardiovascular Exam Cardiovascular Exam: REGULAR RHYTHM, RRR, +S1, +S2. absent: Bradycardia, Tachycardia, Diastolic murmur, Murmur - GI/Abdominal Exam GI & Abdominal Exam: Normal Bowel Sounds. absent: Distended, Firm, Tenderness - Extremities Exam Extremities Exam: Calf Tenderness, Normal Capillary Refill. absent: Pedal Edema Additional comments: R calf tenderness to palpation - Neurological Exam Neurological Exam: Alert, Awake, Oriented x3 - Psychiatric Exam Psychiatric exam: Normal Affect, Normal Mood - Skin Skin Exam: Dry, Intact, Normal Color, Warm Assessment and Plan - Assessment and Plan (Free Text) Assessment: Mrs. Bishop is a 76 year old female a with past medical history of GERD, COPD, and sinusitis who presented with right calf tenderness and swelling presumed to be compartment syndrome. Plan: 1. Right Gastrocnemius Hematoma -Ortho Consulted, all recommendations appreciated -No evidence of compartmental syndrome, with a pressure of 13 -Venous duplex showed no evidence of DVT -CT Angio showed no aneurysmal dilatation, dissection, or significant inflow disease -MRI of R knee showed linear tear in anterior horn of lateral meniscus and synovial cyst posterior to PCL -MRI of RLE showed hematoma in head of gastrocnemius with extensive surrounding edema -ortho, Dr. Mcgraw, states that patient is safe for discharge home and to follow up with his office on Saturday -PT/OT recommends TCU for discharge -d/t gait instability, CM/SW put in for TCU evaluation -Tylenol, Toradol, Morphine for mild, moderate, and severe pain 2. Gastritis -Maalox PRN -Protonix 40 mg daily -HHD -Avoid inciting medications 3. COPD -Cont home Singulair and Brovana -Maintain O2 sat >90% 4. Constipation -tap water enema given once, per patient request 5. GI/DVT Prophylaxis -Protonix/scd's Patient seen and case discussed in detail with attending, Dr. Babcock. <Yoko CESAR,[facility] - Last Filed: 03/08/17 15:51> Objective - Vital Signs/Intake and Output Vital Signs (last 24 hours): Temp Pulse Resp BP Pulse Ox 99.3 F 94 H 18 137/66 94 L 03/08/17 08:55 03/08/17 08:55 03/08/17 08:55 03/08/17 08:55 03/08/17 08:55 Intake and Output: 03/08/17 03/08/17 06:59 18:59 Intake Total 1080 780 Balance 1080 780 - Medications Medications: Current Medications Al Hydrox/Mg Hydrox/Simethicone (Maalox Plus 30 Ml) 15 ml PO Q8H PRN PRN Reason: Indigestion / Heartburn Amitriptyline HCl (Elavil) 10 mg PO DAILY PRN PRN Reason: GI distress Arformoterol Tartrate (Brovana) 15 mcg IH [id number] [facility] Last Admin: 03/08/17 08:43 Dose: 15 mcg Budesonide (Pulmicort Respules) 0.5 mg IH [id number] [facility] Last Admin: 03/08/17 08:43 Dose: 0.5 mg Docusate Sodium (Colace) 100 mg PO BID [facility] Last Admin: 03/08/17 10:27 Dose: 100 mg Ketorolac Tromethamine (Toradol) 15 mg IVP Q6H PRN PRN Reason: Pain, moderate (4-7) Last Admin: 03/08/17 14:26 Dose: 15 mg Lactobacillus Acidophilus (Bacid Acidophilus) 1 cap PO DAILY [facility] Last Admin: 03/08/17 10:27 Dose: 1 cap Meclizine HCl (Antivert) 12.5 mg PO DAILY PRN PRN Reason: Dizziness Last Admin: 03/08/17 10:27 Dose: 12.5 mg Montelukast Sodium (Singulair) 10 mg PO DAILY PRN PRN Reason: Shortness of Breath Morphine Sulfate (Morphine) 4 mg IVP Q6H PRN PRN Reason: Pain, severe (8-10) Last Admin: 03/08/17 10:27 Dose: 4 mg Non-Formulary Medication (Ca/D3/Mag#11/Zinc/Intelligence Senior Sergeant/Alton/Bor [Caltrate 600+D Plus Tablet]) 1 each PO QWK [facility] Last Admin: 03/05/17 09:31 Dose: Not Given Non-Formulary Medication (Multivitamin With Folic Acid [One Daily Multivitamin Tablet]) 400 mcg PO QWK [facility] Last Admin: 03/05/17 09:32 Dose: Not Given Ondansetron HCl (Zofran Inj) 4 mg IVP Q4H PRN PRN Reason: Nausea/Vomiting Oxycodone HCl (Oxycodone Immediate Release Tab) 5 mg PO Q6H PRN PRN Reason: Pain, severe (8-10) Pantoprazole Sodium (Protonix Ec Tab) 40 mg PO ACB [facility] Last Admin: 03/08/17 10:28 Dose: 40 mg Polyethylene Glycol (Miralax) 17 gm PO QOTHERDAY [facility] Last Admin: 03/07/17 10:25 Dose: 17 gm Sertraline HCl (Zoloft) 50 mg PO DAILY [facility] Last Admin: 03/08/17 10:27 Dose: 50 mg - Labs Labs: 03/08/17 06:30 03/08/17 12:30 PT 10.4 Seconds (9.9-11.8) 03/04/17 19:45 INR 0.96 (0.93-1.08) 03/04/17 19:45 APTT 29.1 Seconds (23.7-30.8) 03/04/17 19:45 Attending/Attestation - Attestation I have personally seen and examined this patient.: Yes I have fully participated in the care of the patient.: Yes I have reviewed all pertinent clinical information, including history, physical exam and plan: Yes Notes (Text): 03/08/17 15:51 Patient was seen and examined with medical investigator. Agreed with resident assessment and plan. Management plan was discussed in detail with patient Education was provided.
[2017-03-08] MEDS: Morphine 4 mg/ml ISec IVP PRN ×3 (03:45→18:34)
[2017-03-08 06:58] LABS: MEAN CELL VOLUME 88.4 fL (80.0-105.0); MEAN CORPUSCULAR HEMOGLOBIN 29.1 pg (25.0-35.0); MEAN CORPUSCULAR HGB CONC 32.9 g/dl (31.0-37.0); RBC 3.78 10^6/uL (3.5-6.1); RED CELL DISTRIBUTION WIDTH 14.3 % (11.5-14.5); WHITE BLOOD COUNT 11.9 10^3/ul (4.5-11.0)
[2017-03-08 07:16] LABS: ALBUMIN 3.8 g/dL (3.0-4.8); ALT/SGPT 55 U/L (7-56); AST/SGOT 113 U/L (15-39); BLOOD UREA NITROGEN 12 mg/dL (7-21); CALCIUM 8.7 mg/dL (8.4-10.5); GFR AFRICAN-AMERICAN > 60; GFR NON-AFRICAN AMERICAN > 60
[2017-03-08] MEDS: Budesonide 0.5 mg/2 ml Inhal Susp UD IH SCH ×2 (08:43→19:48)
[2017-03-08] MEDS: Arformoterol 15 mcg/2 ml Inh Sol IH SCH ×2 (08:43→19:48)
[2017-03-08] MEDS: Lactobacillus Acidophilus 500 MU Cap PO SCH (10:27)
[2017-03-08] MEDS: Pantoprazole 40 mg EC Tab PO SCH (10:28)
[2017-03-08] MEDS ORDERED: oxyCODONE 5 mg Immediate Release Tab PO PRN (12:21)
[2017-03-08 12:53] LABS: ALB/GLOB RATIO 0.9 (1.1-1.8); ALT/SGPT 54 U/L (7-56); AST/SGOT 88 U/L (15-39); BLOOD UREA NITROGEN 13 mg/dL (7-21); CALCIUM 9.1 mg/dL (8.4-10.5); GFR AFRICAN-AMERICAN > 60; GFR NON-AFRICAN AMERICAN > 60
--- NOTE | 2017-03-08 13:51 | CP.PCM.PN ---
<JAKERACHANA - Last Filed: 03/08/17 13:47> Subjective - Date & Time of Evaluation Date of Evaluation: 03/08/17 Time of Evaluation: 09:00 - Subjective Subjective: Medicine Progress Note: Pt see and assessed at bedside. Pt continues to complain of pain in her right calf. She states that she is no longer constipated and feeling better. She has no other complaints at this time. She denies fevers, headaches, changes in vision, shortness of breath, chest pain, palpitations, abdominal pain, N/V or diarrhea. Objective - Vital Signs/Intake and Output Vital Signs (last 24 hours): Temp Pulse Resp BP Pulse Ox 99.3 F 94 H 18 137/66 94 L 03/08/17 08:55 03/08/17 08:55 03/08/17 08:55 03/08/17 08:55 03/08/17 08:55 Intake and Output: 03/08/17 03/08/17 06:59 18:59 Intake Total 1080 Balance 1080 - Medications Medications: Current Medications Al Hydrox/Mg Hydrox/Simethicone (Maalox Plus 30 Ml) 15 ml PO Q8H PRN PRN Reason: Indigestion / Heartburn Amitriptyline HCl (Elavil) 10 mg PO DAILY PRN PRN Reason: GI distress Arformoterol Tartrate (Brovana) 15 mcg IH [id number] COUNTS INCLUDE 234 BEDS AT THE [facility] Last Admin: 03/08/17 08:43 Dose: 15 mcg Budesonide (Pulmicort Respules) 0.5 mg IH [id number] COUNTS INCLUDE 234 BEDS AT THE [facility] Last Admin: 03/08/17 08:43 Dose: 0.5 mg Docusate Sodium (Colace) 100 mg PO BID COUNTS INCLUDE 234 BEDS AT THE [facility] Last Admin: 03/08/17 10:27 Dose: 100 mg Ketorolac Tromethamine (Toradol) 15 mg IVP Q6H PRN PRN Reason: Pain, moderate (4-7) Last Admin: 03/06/17 11:08 Dose: 15 mg Lactobacillus Acidophilus (Bacid Acidophilus) 1 cap PO DAILY COUNTS INCLUDE 234 BEDS AT THE [facility] Last Admin: 03/08/17 10:27 Dose: 1 cap Meclizine HCl (Antivert) 12.5 mg PO DAILY PRN PRN Reason: Dizziness Last Admin: 03/08/17 10:27 Dose: 12.5 mg Montelukast Sodium (Singulair) 10 mg PO DAILY PRN PRN Reason: Shortness of Breath Morphine Sulfate (Morphine) 4 mg IVP Q6H PRN PRN Reason: Pain, severe (8-10) Last Admin: 03/08/17 10:27 Dose: 4 mg Non-Formulary Medication (Ca/D3/Mag#11/Zinc/Offline Cutter/Alton/Bor [Caltrate 600+D Plus Tablet]) 1 each PO QWK COUNTS INCLUDE 234 BEDS AT THE [facility] Last Admin: 03/05/17 09:31 Dose: Not Given Non-Formulary Medication (Multivitamin With Folic Acid [One Daily Multivitamin Tablet]) 400 mcg PO QWK COUNTS INCLUDE 234 BEDS AT THE [facility] Last Admin: 03/05/17 09:32 Dose: Not Given Ondansetron HCl (Zofran Inj) 4 mg IVP Q4H PRN PRN Reason: Nausea/Vomiting Oxycodone HCl (Oxycodone Immediate Release Tab) 5 mg PO Q6H PRN PRN Reason: Pain, severe (8-10) Pantoprazole Sodium (Protonix Ec Tab) 40 mg PO ACB COUNTS INCLUDE 234 BEDS AT THE [facility] Last Admin: 03/08/17 10:28 Dose: 40 mg Polyethylene Glycol (Miralax) 17 gm PO QOTHERDAY COUNTS INCLUDE 234 BEDS AT THE [facility] Last Admin: 03/07/17 10:25 Dose: 17 gm Sertraline HCl (Zoloft) 50 mg PO DAILY COUNTS INCLUDE 234 BEDS AT THE [facility] Last Admin: 03/08/17 10:27 Dose: 50 mg - Labs Labs: 03/08/17 06:30 03/08/17 12:30 PT 10.4 Seconds (9.9-11.8) 03/04/17 19:45 INR 0.96 (0.93-1.08) 03/04/17 19:45 APTT 29.1 Seconds (23.7-30.8) 03/04/17 19:45 - Constitutional Appears: No Acute Distress - Head Exam Head Exam: NORMAL INSPECTION, NORMOCEPHALIC - Eye Exam Eye Exam: EOMI, Normal appearance - ENT Exam ENT Exam: Mucous Membranes Moist, Normal Exam - Neck Exam Neck Exam: Full ROM - Respiratory Exam Respiratory Exam: Clear to Ausculation Bilateral, NORMAL BREATHING PATTERN. absent: Rales, Rhonchi, Wheezes - Cardiovascular Exam Cardiovascular Exam: REGULAR RHYTHM, RRR, +S1, +S2. absent: Bradycardia, Tachycardia - GI/Abdominal Exam GI & Abdominal Exam: Normal Bowel Sounds. absent: Distended, Soft, Tenderness - Extremities Exam Extremities Exam: Calf Tenderness, Normal Capillary Refill, Tenderness. absent : Pedal Edema Additional comments: R calf tenderness to palpation - Neurological Exam Neurological Exam: Alert, Awake, Oriented x3 - Psychiatric Exam Psychiatric exam: Normal Affect, Normal Mood - Skin Skin Exam: Dry, Intact, Normal Color, Warm Assessment and Plan - Assessment and Plan (Free Text) Assessment: Mrs. Bishop is a 76 year old female a with past medical history of GERD, COPD, and sinusitis who presented with right calf tenderness and swelling due to a hematoma in her right gastrocnemius. Plan: 1. Right Gastrocnemius Hematoma -Ortho Consulted, all recommendations appreciated -No evidence of compartmental syndrome, with a pressure of 13 -Venous duplex showed no evidence of DVT -CT Angio showed no aneurysmal dilatation, dissection, or significant inflow disease -MRI of R knee showed linear tear in anterior horn of lateral meniscus and synovial cyst posterior to PCL -MRI of RLE showed hematoma in head of gastrocnemius with extensive surrounding edema -ortho, Dr. Mcgraw, states that patient is safe for discharge home and to follow up with his office on Saturday -PT/OT recommends TCU for discharge -d/t gait instability, CM/SW put in for TCU evaluation; awaiting final insurance approval for TCU -Tylenol, Toradol, Oxycodone (started on 03/08) for mild, moderate, and severe pain 2. History of Gastritis -Maalox PRN -Protonix 40 mg daily -HHD 3. COPD -Cont home Singulair and Brovana -Maintain O2 sat >90% 4. Constipation -tap water enema given once, per patient request -resolved -will cont to monitor 5. GI/DVT Prophylaxis -Protonix/scd's Patient seen and case discussed in detail with attending, Dr. Babcock. <Yoko [facility]ESAR,[facility] - Last Filed: 03/08/17 15:52> Objective - Vital Signs/Intake and Output Vital Signs (last 24 hours): Temp Pulse Resp BP Pulse Ox 99.3 F 94 H 18 137/66 94 L 03/08/17 08:55 03/08/17 08:55 03/08/17 08:55 03/08/17 08:55 03/08/17 08:55 Intake and Output: 03/08/17 03/08/17 06:59 18:59 Intake Total 1080 780 Balance 1080 780 - Medications Medications: Current Medications Al Hydrox/Mg Hydrox/Simethicone (Maalox Plus 30 Ml) 15 ml PO Q8H PRN PRN Reason: Indigestion / Heartburn Amitriptyline HCl (Elavil) 10 mg PO DAILY PRN PRN Reason: GI distress Arformoterol Tartrate (Brovana) 15 mcg IH [id number] COUNTS INCLUDE 234 BEDS AT THE [facility] Last Admin: 03/08/17 08:43 Dose: 15 mcg Budesonide (Pulmicort Respules) 0.5 mg IH [id number] COUNTS INCLUDE 234 BEDS AT THE [facility] Last Admin: 03/08/17 08:43 Dose: 0.5 mg Docusate Sodium (Colace) 100 mg PO BID COUNTS INCLUDE 234 BEDS AT THE [facility] Last Admin: 03/08/17 10:27 Dose: 100 mg Ketorolac Tromethamine (Toradol) 15 mg IVP Q6H PRN PRN Reason: Pain, moderate (4-7) Last Admin: 03/08/17 14:26 Dose: 15 mg Lactobacillus Acidophilus (Bacid Acidophilus) 1 cap PO DAILY COUNTS INCLUDE 234 BEDS AT THE [facility] Last Admin: 03/08/17 10:27 Dose: 1 cap Meclizine HCl (Antivert) 12.5 mg PO DAILY PRN PRN Reason: Dizziness Last Admin: 03/08/17 10:27 Dose: 12.5 mg Montelukast Sodium (Singulair) 10 mg PO DAILY PRN PRN Reason: Shortness of Breath Morphine Sulfate (Morphine) 4 mg IVP Q6H PRN PRN Reason: Pain, severe (8-10) Last Admin: 03/08/17 10:27 Dose: 4 mg Non-Formulary Medication (Ca/D3/Mag#11/Zinc/Offline Cutter/Alton/Bor [Caltrate 600+D Plus Tablet]) 1 each PO QWK COUNTS INCLUDE 234 BEDS AT THE [facility] Last Admin: 03/05/17 09:31 Dose: Not Given Non-Formulary Medication (Multivitamin With Folic Acid [One Daily Multivitamin Tablet]) 400 mcg PO QWK COUNTS INCLUDE 234 BEDS AT THE [facility] Last Admin: 03/05/17 09:32 Dose: Not Given Ondansetron HCl (Zofran Inj) 4 mg IVP Q4H PRN PRN Reason: Nausea/Vomiting Oxycodone HCl (Oxycodone Immediate Release Tab) 5 mg PO Q6H PRN PRN Reason: Pain, severe (8-10) Pantoprazole Sodium (Protonix Ec Tab) 40 mg PO ACB COUNTS INCLUDE 234 BEDS AT THE [facility] Last Admin: 03/08/17 10:28 Dose: 40 mg Polyethylene Glycol (Miralax) 17 gm PO QOTHERDAY COUNTS INCLUDE 234 BEDS AT THE [facility] Last Admin: 03/07/17 10:25 Dose: 17 gm Sertraline HCl (Zoloft) 50 mg PO DAILY COUNTS INCLUDE 234 BEDS AT THE [facility] Last Admin: 03/08/17 10:27 Dose: 50 mg - Labs Labs: 03/08/17 06:30 03/08/17 12:30 PT 10.4 Seconds (9.9-11.8) 03/04/17 19:45 INR 0.96 (0.93-1.08) 03/04/17 19:45 APTT 29.1 Seconds (23.7-30.8) 03/04/17 19:45 Attending/Attestation - Attestation I have personally seen and examined this patient.: Yes I have fully participated in the care of the patient.: Yes I have reviewed all pertinent clinical information, including history, physical exam and plan: Yes Notes (Text): 03/08/17 15:52 Patient was seen and examined with medical investigator. Agreed with resident assessment and plan. Management plan was discussed in detail with patient Education was provided.
[2017-03-09 07:46] VITALS: BP 136/73; PULSE 90; RESP 20; TEMP 99.7; O2SAT 96
[2017-03-09 08:17] LABS: HEMOGLOBIN 11.4 gm/dL (12.0-16.0); MEAN CELL VOLUME 88.1 fL (80.0-105.0); MEAN CORPUSCULAR HEMOGLOBIN 29.4 pg (25.0-35.0); MEAN CORPUSCULAR HGB CONC 33.3 g/dl (31.0-37.0); MEAN PLATELET VOLUME 9.9 fl (7.0-11.0); RBC 3.88 10^6/uL (3.5-6.1); RED CELL DISTRIBUTION WIDTH 14.1 % (11.5-14.5); WHITE BLOOD COUNT 11.6 10^3/ul (4.5-11.0)
[2017-03-09] MEDS: POLYETHYLENE GLYCOL 3350 17 GM/Dose PACKET PO SCH ×2 (08:26→11:18)
[2017-03-09] MEDS: Morphine 4 mg/ml ISec IVP PRN ×2 (08:26→14:36)
[2017-03-09] MEDS: Pantoprazole 40 mg EC Tab PO SCH (08:26)
[2017-03-09 08:30] LABS: ALB/GLOB RATIO 0.9 (1.1-1.8); ALT/SGPT 55 U/L (7-56); AST/SGOT 67 U/L (15-39); BLOOD UREA NITROGEN 13 mg/dL (7-21); CALCIUM 9.1 mg/dL (8.4-10.5); GFR AFRICAN-AMERICAN > 60; GFR NON-AFRICAN AMERICAN > 60
[2017-03-09] MEDS: Arformoterol 15 mcg/2 ml Inh Sol IH SCH (09:00)
[2017-03-09] MEDS: Budesonide 0.5 mg/2 ml Inhal Susp UD IH SCH (09:00)
[2017-03-09] MEDS: Lactobacillus Acidophilus 500 MU Cap PO SCH (11:17)
--- NOTE | 2017-03-09 17:43 | CP.PCM.DIS ---
<Abhishek Gordon - Last Filed: 03/09/17 17:35> Provider - Provider Date of Admission: 03/06/17 07:42 Attending physician: Ondina Babcock MD Consults: Orthopedic Time Spent in preparation of Discharge (in minutes): 40 Hospital Course - Lab Results Lab Results: Most Recent Lab Values WBC 11.6 10^3/ul (4.5-11.0) H 03/09/17 08:00 RBC 3.88 10^6/uL (3.5-6.1) 03/09/17 08:00 Hgb 11.4 gm/dL (12.0-16.0) L 03/09/17 08:00 Hct 34.2 % (36.0-48.0) L 03/09/17 08:00 MCV 88.1 fL (80.0-105.0) 03/09/17 08:00 MCH 29.4 pg (25.0-35.0) 03/09/17 08:00 MCHC 33.3 g/dl (31.0-37.0) 03/09/17 08:00 RDW 14.1 % (11.5-14.5) 03/09/17 08:00 Plt Count 381 10^3/uL (120.0-450.0) 03/09/17 08:00 MPV 9.9 fl (7.0-11.0) 03/09/17 08:00 Gran % 58.5 % (50.0-68.0) 03/04/17 19:45 Lymph % (Auto) 30.7 % (22.0-35.0) 03/04/17 19:45 Linn % (Auto) 7.5 % (1.0-6.0) H 03/04/17 19:45 Eos % (Auto) 2.3 % (1.5-5.0) 03/04/17 19:45 Baso % (Auto) 1.0 % (0.0-3.0) 03/04/17 19:45 Gran # 5.97 (1.4-6.5) 03/04/17 19:45 Lymph # 3.1 (1.2-3.4) 03/04/17 19:45 Linn # 0.8 (0.1-0.6) H 03/04/17 19:45 Eos # 0.2 (0.0-0.7) 03/04/17 19:45 Baso # 0.10 K/mm3 (0.0-2.0) 03/04/17 19:45 PT 10.4 Seconds (9.9-11.8) 03/04/17 19:45 INR 0.96 (0.93-1.08) 03/04/17 19:45 APTT 29.1 Seconds (23.7-30.8) 03/04/17 19:45 Sodium 136 mmol/L (132-148) 03/09/17 08:00 Potassium 4.0 mmol/L (3.6-5.0) 03/09/17 08:00 Chloride 102 mmol/L (98-107) 03/09/17 08:00 Carbon Dioxide 24 mmol/L (21-33) 03/09/17 08:00 Anion Gap 14 (10-20) 03/09/17 08:00 BUN 13 mg/dL (7-21) 03/09/17 08:00 Creatinine 0.6 mg/dL (0.5-1.4) 03/09/17 08:00 Est GFR ( Amer) > 60 03/09/17 08:00 Est GFR (Non-Af Amer) > 60 03/09/17 08:00 Random Glucose 109 mg/dL (70-110) 03/09/17 08:00 Calcium 9.1 mg/dL (8.4-10.5) 03/09/17 08:00 Phosphorus 3.5 mg/dL (2.5-4.5) 03/05/17 03:40 Magnesium 1.8 mg/dL (1.7-2.2) 03/05/17 03:40 Total Bilirubin 0.8 mg/dL (0.2-1.3) 03/09/17 08:00 AST 67 U/L (15-39) H 03/09/17 08:00 ALT 55 U/L (7-56) 03/09/17 08:00 Alkaline Phosphatase 178 U/L (38-133) H 03/09/17 08:00 Total Creatine Kinase 71 U/L (35-230) 03/04/17 20:31 Troponin I < 0.01 ng/mL 03/05/17 03:40 Total Protein 8.5 g/dL (5.8-8.3) H 03/09/17 08:00 Albumin 4.0 g/dL (3.0-4.8) 03/09/17 08:00 Globulin 4.5 gm/dL 03/09/17 08:00 Albumin/Globulin Ratio 0.9 (1.1-1.8) L 03/09/17 08:00 Blood Type O NEGATIVE 03/04/17 19:45 Blood Type Confirm O NEGATIVE 03/04/17 21:10 Antibody Screen Negative 03/04/17 19:45 BBK History Checked No verified bt 03/04/17 19:45 - Hospital Course Hospital Course: 76 yo F with PMHx of gastritis/GERD, sinusitis, and COPD was see in office by Dr. Mcgraw which instructed pt to go to ED for concerns of compartment syndrome without fracture. Pt complaints of right leg pain localized in the calf region and swelling for the past week. In the ED basic labwork was done. Compartment pressure was done and was 13. Venous doppler showed no evidence of DVT -CT Angio showed no aneurysmal dilatation, dissection, or significant inflow disease. CXR was done and showed no active dx. Pt was sent to the floor for closer observation. Orthopedic was consulted for recs and rec MRI of R knee showed linear tear in anterior horn of lateral meniscus and synovial cyst posterior to PCL, MRI of RLE showed hematoma in head of gastrocnemius with extensive surrounding edema. Orthopedic team rec outpatient follow up. PT recommended TCU for deconditioning and continued rehab. Today pt was doing well. No complaints at this time. Will transfer to TCU for cont rehab. Discharge Exam - Head Exam Head Exam: NORMAL INSPECTION, NORMOCEPHALIC - Eye Exam Eye Exam: EOMI, Normal appearance, PERRL Pupil Exam: NORMAL ACCOMODATION, PERRL - Respiratory Exam Respiratory Exam: Clear to PA & Lateral, NORMAL BREATHING PATTERN. absent: Rales, Wheezes - Cardiovascular Exam Cardiovascular Exam: REGULAR RHYTHM, RRR, +S1, +S2 - GI/Abdominal Exam GI & Abdominal Exam: Normal Bowel Sounds, Soft. absent: Tenderness - Neurological Exam Neurological exam: Alert, CN II-XII Intact, Normal Gait, Oriented x3, Reflexes Normal - Psychiatric Exam Psychiatric exam: Normal Affect, Normal Mood - Skin Skin Exam: Dry, Intact, Normal Color, Warm Discharge Plan - Follow Up Plan Condition: IMPROVED Disposition: REHAB FACILITY/REHAB UNIT Patient education suggested?: Yes Instructions: Constipation (DC), High Fiber Diet (DC), Heart Healthy Diet (DC) , Compartment Syndrome (GEN), Fall Prevention (GEN), Edema (GEN) Additional Instructions: Discharge to TCU for rehab and PT Referrals: [facility], [Non-Staff] - Follow up with primary Sadi Mcgraw MD [Staff Provider] - <Ondina Babcock MD - Last Filed: 03/10/17 11:00> Provider - Provider Date of Admission: 03/06/17 07:42 Attending physician: Ondina Babcock MD Hospital Course - Lab Results Lab Results: Most Recent Lab Values WBC 11.6 10^3/ul (4.5-11.0) H 03/09/17 08:00 RBC 3.88 10^6/uL (3.5-6.1) 03/09/17 08:00 Hgb 11.4 gm/dL (12.0-16.0) L 03/09/17 08:00 Hct 34.2 % (36.0-48.0) L 03/09/17 08:00 MCV 88.1 fL (80.0-105.0) 03/09/17 08:00 MCH 29.4 pg (25.0-35.0) 03/09/17 08:00 MCHC 33.3 g/dl (31.0-37.0) 03/09/17 08:00 RDW 14.1 % (11.5-14.5) 03/09/17 08:00 Plt Count 381 10^3/uL (120.0-450.0) 03/09/17 08:00 MPV 9.9 fl (7.0-11.0) 03/09/17 08:00 Gran % 58.5 % (50.0-68.0) 03/04/17 19:45 Lymph % (Auto) 30.7 % (22.0-35.0) 03/04/17 19:45 Linn % (Auto) 7.5 % (1.0-6.0) H 03/04/17 19:45 Eos % (Auto) 2.3 % (1.5-5.0) 03/04/17 19:45 Baso % (Auto) 1.0 % (0.0-3.0) 03/04/17 19:45 Gran # 5.97 (1.4-6.5) 03/04/17 19:45 Lymph # 3.1 (1.2-3.4) 03/04/17 19:45 Linn # 0.8 (0.1-0.6) H 03/04/17 19:45 Eos # 0.2 (0.0-0.7) 03/04/17 19:45 Baso # 0.10 K/mm3 (0.0-2.0) 03/04/17 19:45 PT 10.4 Seconds (9.9-11.8) 03/04/17 19:45 INR 0.96 (0.93-1.08) 03/04/17 19:45 APTT 29.1 Seconds (23.7-30.8) 03/04/17 19:45 Sodium 136 mmol/L (132-148) 03/09/17 08:00 Potassium 4.0 mmol/L (3.6-5.0) 03/09/17 08:00 Chloride 102 mmol/L (98-107) 03/09/17 08:00 Carbon Dioxide 24 mmol/L (21-33) 03/09/17 08:00 Anion Gap 14 (10-20) 03/09/17 08:00 BUN 13 mg/dL (7-21) 03/09/17 08:00 Creatinine 0.6 mg/dL (0.5-1.4) 03/09/17 08:00 Est GFR ( Amer) > 60 03/09/17 08:00 Est GFR (Non-Af Amer) > 60 03/09/17 08:00 Random Glucose 109 mg/dL (70-110) 03/09/17 08:00 Calcium 9.1 mg/dL (8.4-10.5) 03/09/17 08:00 Phosphorus 3.5 mg/dL (2.5-4.5) 03/05/17 03:40 Magnesium 1.8 mg/dL (1.7-2.2) 03/05/17 03:40 Total Bilirubin 0.8 mg/dL (0.2-1.3) 03/09/17 08:00 AST 67 U/L (15-39) H 03/09/17 08:00 ALT 55 U/L (7-56) 03/09/17 08:00 Alkaline Phosphatase 178 U/L (38-133) H 03/09/17 08:00 Total Creatine Kinase 71 U/L (35-230) 03/04/17 20:31 Troponin I < 0.01 ng/mL 03/05/17 03:40 Total Protein 8.5 g/dL (5.8-8.3) H 03/09/17 08:00 Albumin 4.0 g/dL (3.0-4.8) 03/09/17 08:00 Globulin 4.5 gm/dL 03/09/17 08:00 Albumin/Globulin Ratio 0.9 (1.1-1.8) L 03/09/17 08:00 Blood Type O NEGATIVE 03/04/17 19:45 Blood Type Confirm O NEGATIVE 03/04/17 21:10 Antibody Screen Negative 03/04/17 19:45 BBK History Checked No verified bt 03/04/17 19:45 Attending/Attestation - Attestation I have personally seen and examined this patient.: Yes I have fully participated in the care of the patient.: Yes I have reviewed all pertinent clinical information, including history, physical exam and plan: Yes Notes (Text): 03/10/17 10:54 Patient was seen and examined with medical office technician. 76 yo F with PMHx of gastritis/GERD, sinusitis, and COPD was admitted with lefy calf and leg pain.She was evaluated earlier in in office by Dr. Mcgraw who instructed pt to go to ED for concerns of compartment syndrome. Compartment pressure was done and was 13. Venous doppler showed no evidence of DVT -CT Angio showed no aneurysmal dilatation, dissection, or significant inflow disease. MRI of R knee showed linear tear in anterior horn of lateral meniscus and synovial cyst posterior to PCL, MRI of RLE showed hematoma in head of gastrocnemius with extensive surrounding edema. Orthopedic team rec outpatient follow up. Patient was unable to ambulate , was evaluated by PT.PT recommended TCU for deconditioning and continued rehab. Patient pain is better, she is goinf to be discharged to TCU for rehabilitation. Management plan was discussed in detail with patient Education was provided.
== END 2017-03-09 15:59 | DRG 923 ==
LOC: ED 17:36 → ERH 03-05 01:57 → 5RSO 03-05 03:58 → OBSVTOIN 03-06 07:42
PROVIDERS: ADMIT Internal Medicine; ATTEND Internal Medicine
DX: T79.A22A Traumatic compartment syndrome of left lower extremity, initial encounter (principal); J44.9 Chronic obstructive pulmonary disease, unspecified; J32.9 Chronic sinusitis, unspecified; K21.9 Gastro-esophageal reflux disease without esophagitis; S83.281A Other tear of lateral meniscus, current injury, right knee, initial encounter; M71.21 Synovial cyst of popliteal space [Baker], right knee; K29.70 Gastritis, unspecified, without bleeding; K59.00 Constipation, unspecified; Z79.899 Other long term (current) drug therapy; Z87.891 Personal history of nicotine dependence; Z90.49 Acquired absence of other specified parts of digestive tract; Z98.51 Tubal ligation status; M54.9 Dorsalgia, unspecified; F41.9 Anxiety disorder, unspecified; R40.2412 Glasgow coma scale score 13-15, at arrival to emergency department; R53.81 Other malaise; S80.11XA Contusion of right lower leg, initial encounter

== ENCOUNTER 2017-03-09 16:02 | Inpatient (IN) | payer MEDICARE, OTHER ==
[2017-03-09] MEDS ORDERED: Alum-Mag Hydrox-Simethicone Susp (30 mL) PO PRN (16:36)
[2017-03-09] MEDS ORDERED: Pneumococcal 23-Valent Vaccine IM ONE (17:46)
[2017-03-09] MEDS: Morphine 4 mg/ml ISec IVP PRN (19:46)
[2017-03-09] MEDS: Budesonide 0.5 mg/2 ml Inhal Susp UD IH SCH (20:03)
[2017-03-09] MEDS: Arformoterol 15 mcg/2 ml Inh Sol IH SCH (20:03)
[2017-03-09] MEDS: oxyCODONE 5 mg Immediate Release Tab PO PRN (22:37)
[2017-03-10] MEDS: Morphine 4 mg/ml ISec IVP PRN ×4 (02:46→20:32)
[2017-03-10] MEDS: oxyCODONE 5 mg Immediate Release Tab PO PRN ×2 (05:30→19:52)
[2017-03-10] MEDS: Pantoprazole 40 mg EC Tab PO SCH ×2 (05:34→08:52)
[2017-03-10] MEDS: Budesonide 0.5 mg/2 ml Inhal Susp UD IH SCH ×2 (07:33→20:51)
[2017-03-10] MEDS: Arformoterol 15 mcg/2 ml Inh Sol IH SCH ×2 (07:33→20:51)
[2017-03-10] MEDS: Lactobacillus Acidophilus 500 MU Cap PO SCH (10:50)
[2017-03-10 11:13] LABS: ALB/GLOB RATIO 0.9 (1.1-1.8); ALBUMIN 3.8 g/dL (3.0-4.8); ALT/SGPT 74 U/L (7-56); AST/SGOT 98 U/L (15-39); BLOOD UREA NITROGEN 13 mg/dL (7-21); CALCIUM 8.8 mg/dL (8.4-10.5); GFR AFRICAN-AMERICAN > 60; GFR NON-AFRICAN AMERICAN > 60
[2017-03-10 11:43] LABS: BASO # 0.09 K/mm3 (0.0-2.0); EOS # 0.1 (0.0-0.7); GRAN % 62.1 % (50.0-68.0); HEMOGLOBIN 10.9 gm/dL (12.0-16.0); LYMPH # 2.2 (1.2-3.4); LYMPH % 23.6 % (22.0-35.0); MEAN CELL VOLUME 88.9 fL (80.0-105.0); MEAN CORPUSCULAR HEMOGLOBIN 28.9 pg (25.0-35.0); MEAN CORPUSCULAR HGB CONC 32.5 g/dl (31.0-37.0); MEAN PLATELET VOLUME 10.2 fl (7.0-11.0); MONO # 1.2 (0.1-0.6); MONO % 12.3 % (1.0-6.0); PLATELET COUNT 379 10^3/uL (120.0-450.0); RBC 3.77 10^6/uL (3.5-6.1); RED CELL DISTRIBUTION WIDTH 13.8 % (11.5-14.5); WHITE BLOOD COUNT 9.3 10^3/ul (4.5-11.0)
--- NOTE | 2017-03-10 12:22 | CP.PCM.HP ---
<Abhishek Gordon - Last Filed: 03/10/17 12:17> History of Present Illness - History of Present Illness History of Present Illness: 76 yo F with PMHx of gastritis/GERD, sinusitis, and COPD was see in office by Dr. Mcgraw which instructed pt to go to ED for concerns of compartment syndrome without fracture. Pt complaints of right leg pain localized in the calf region and swelling for the past week. In the ED basic labwork was done. Compartment pressure was done and was 13. Venous doppler showed no evidence of DVT -CT Angio showed no aneurysmal dilatation, dissection, or significant inflow disease. CXR was done and showed no active dx. Pt was sent to the floor for closer observation. Orthopedic was consulted for recs and rec MRI of R knee showed linear tear in anterior horn of lateral meniscus and synovial cyst posterior to PCL, MRI of RLE showed hematoma in head of gastrocnemius with extensive surrounding edema. Orthopedic team rec outpatient follow up. PT recommended TCU for deconditioning and continued rehab. Today pt was doing well. No complaints at this time. Will transfer to TCU for cont rehab. PMHx: gastritis/GERD, sinusitis, COPD Surg: cholecystectomy, tubal ligation FHx: Bladder cancer All: latex SH: Social EtOH use, Denied tobacco or illicit drug use Meds: reviewed and as per chart Present on Admission - Present on Admission Any Indicators Present on Admission: No Review of Systems - Review of Systems All systems: reviewed and no additional remarkable complaints except (HPI) Past Patient History - Tetanus Immunizations Tetanus Immunization: Unknown - Past Social History Smoking Status: Former Smoker - CARDIAC Hx Cardiac Disorders: No - PULMONARY Hx Chronic Obstructive Pulmonary Disease (COPD): Yes - NEUROLOGICAL Hx Neurological Disorder: No - HEENT Hx HEENT Problems: No - RENAL Hx Chronic Kidney Disease: No - ENDOCRINE/METABOLIC Hx Endocrine Disorders: No - HEMATOLOGICAL/ONCOLOGICAL Hx Blood Disorders: No - INTEGUMENTARY Hx Dermatological Problems: No - MUSCULOSKELETAL/RHEUMATOLOGICAL Hx Falls: No - GASTROINTESTINAL Hx Gastrointestinal Disorders: Yes (reflux) - GENITOURINARY/GYNECOLOGICAL Hx Reproductive Disorders: Yes (tubal ligation) - PSYCHIATRIC Hx Anxiety: Yes Hx Substance Use: No - SURGICAL HISTORY Hx Cholecystectomy: Yes - ANESTHESIA Hx Anesthesia: Yes Hx Anesthesia Reactions: No Meds Allergies/Adverse Reactions: Allergies Allergy/AdvReac Type Severity Reaction Status Date / Time latex Allergy Verified 02/17/17 15:01 Physical Exam - Constitutional Appears: No Acute Distress - Head Exam Head Exam: ATRAUMATIC, NORMAL INSPECTION, NORMOCEPHALIC - Eye Exam Eye Exam: EOMI, Normal appearance, PERRL Pupil Exam: NORMAL ACCOMODATION, PERRL - ENT Exam ENT Exam: Mucous Membranes Moist, Normal Exam - Neck Exam Neck exam: Positive for: Normal Inspection - Respiratory Exam Respiratory Exam: Clear to Auscultation Bilateral, NORMAL BREATHING PATTERN. absent: Wheezes - Cardiovascular Exam Cardiovascular Exam: REGULAR RHYTHM, RRR, +S1, +S2 - GI/Abdominal Exam GI & Abdominal Exam: Normal Bowel Sounds, Soft. absent: Tenderness - Extremities Exam Extremities exam: Positive for: normal inspection. Negative for: calf tenderness - Back Exam Back exam: NORMAL INSPECTION - Neurological Exam Neurological exam: Alert, CN II-XII Intact, Oriented x3 - Psychiatric Exam Psychiatric exam: Normal Affect, Normal Mood - Skin Skin Exam: Dry, Intact, Normal Color, Warm Results - Vital Signs Recent Vital Signs: Last Vital Signs Temp 97.2 F L 03/09/17 17:36 Pulse 68 03/09/17 17:36 Resp 16 03/09/17 17:36 BP 142/71 03/09/17 17:36 Pulse Ox - Labs Result Diagrams: 03/10/17 10:50 03/10/17 10:50 Labs: Laboratory Results - last 24 hr 03/10/17 03/10/17 10:50 10:50 WBC 9.3 RBC 3.77 Hgb 10.9 L Hct 33.5 L MCV 88.9 MCH 28.9 MCHC 32.5 RDW 13.8 Plt Count 379 MPV 10.2 Gran % 62.1 Lymph % (Auto) 23.6 [place] % (Auto) 12.3 H Eos % (Auto) 1.0 L Baso % (Auto) 1.0 Gran # 5.80 Lymph # 2.2 [place] # 1.2 H Eos # 0.1 Baso # 0.09 Sodium 135 Potassium 3.9 Chloride 98 Carbon Dioxide 27 Anion Gap 14 BUN 13 Creatinine 0.6 Est GFR ( Amer) > 60 Est GFR (Non-Af Amer) > 60 Random Glucose 95 Calcium 8.8 Total Bilirubin 1.0 AST 98 H ALT 74 H Alkaline Phosphatase 226 H Total Protein 8.1 Albumin 3.8 Globulin 4.3 Albumin/Globulin Ratio 0.9 L Assessment & Plan - Assessment and Plan (Free Text) Assessment: Mrs. Bishop is a 76 year old female a with past medical history of GERD, COPD, and sinusitis who presented with right calf tenderness and swelling due to a hematoma in her right gastrocnemius. TCU for deconditioning and cont rehab. 1. TCU for deconditioning - c/o back pain and LE pain - f/u xray of femur, LS spine, and Hip - Cont rehab - PT and OT 2. Right Gastrocnemius Hematoma - Pain control -No evidence of compartmental syndrome, with a pressure of 13 -Venous duplex showed no evidence of DVT -CT Angio showed no aneurysmal dilatation, dissection, or significant inflow disease -MRI of R knee showed linear tear in anterior horn of lateral meniscus and synovial cyst posterior to PCL -MRI of RLE showed hematoma in head of gastrocnemius with extensive surrounding edema -Ortho, Dr. Mcgraw, states that patient is safe for discharge outp pt f/u 3. History of Gastritis -Maalox PRN -Protonix 40 mg daily 4. COPD -Cont home Singulair and Brovana -Maintain O2 sat >90% 5. Constipation -resolved -will cont to monitor 6. GI/DVT Prophylaxis -Protonix/scd's Patient reviewed and case discussed in detail with attending, Dr. Babcock. <Yoko CESAR,[facility] - Last Filed: 03/10/17 16:59> Results - Vital Signs Recent Vital Signs: Last Vital Signs Temp 97.2 F L 03/09/17 17:36 Pulse 68 03/09/17 17:36 Resp 16 03/09/17 17:36 BP 142/71 03/09/17 17:36 Pulse Ox - Labs Result Diagrams: 03/10/17 10:50 03/10/17 10:50 Labs: Laboratory Results - last 24 hr 03/10/17 03/10/17 10:50 10:50 WBC 9.3 RBC 3.77 Hgb 10.9 L Hct 33.5 L MCV 88.9 MCH 28.9 MCHC 32.5 RDW 13.8 Plt Count 379 MPV 10.2 Gran % 62.1 Lymph % (Auto) 23.6 [place] % (Auto) 12.3 H Eos % (Auto) 1.0 L Baso % (Auto) 1.0 Gran # 5.80 Lymph # 2.2 [place] # 1.2 H Eos # 0.1 Baso # 0.09 Sodium 135 Potassium 3.9 Chloride 98 Carbon Dioxide 27 Anion Gap 14 BUN 13 Creatinine 0.6 Est GFR ( Amer) > 60 Est GFR (Non-Af Amer) > 60 Random Glucose 95 Calcium 8.8 Total Bilirubin 1.0 AST 98 H ALT 74 H Alkaline Phosphatase 226 H Total Protein 8.1 Albumin 3.8 Globulin 4.3 Albumin/Globulin Ratio 0.9 L Attending/Attestation - Attestation I have personally seen and examined this patient.: Yes I have fully participated in the care of the patient.: Yes I have reviewed all pertinent clinical information: Yes Notes (Text): 03/10/17 16:56 Patient was seen and examined with hospital medical assistant. 76 yo F with PMHx of gastritis/GERD, sinusitis, and COPD was admitted with lefy calf and leg pain.She was evaluated earlier in in office by Dr. Mcgraw who instructed pt to go to ED for concerns of compartment syndrome. Compartment pressure was done and was 13. Venous doppler showed no evidence of DVT -CT Angio showed no aneurysmal dilatation, dissection, or significant inflow disease. MRI of R knee showed linear tear in anterior horn of lateral meniscus and synovial cyst posterior to PCL, MRI of RLE showed hematoma in head of gastrocnemius with extensive surrounding edema. Orthopedic team rec outpatient follow up. Patient was unable to ambulate , was evaluated by PT.PT recommended TCU for deconditioning and patient was admitted to TCU.tODAY SHE WAS C/O right hip, Xrays are negative for any fracture.Hemoglobin is stable, patient is c/o musscle spasm, will add low dose of baclofen, AST is mild up copared to yesterday, we will monitor. Management plan was discussed in detail with patient Education was provide
--- NOTE | 2017-03-10 14:12 | RAD ---
PROCEDURE: Radiographs of the bilateral femurs. HISTORY: pain COMPARISON: None. FINDINGS: BONES: Right Femur: Normal. No fracture. No lytic or blastic process. Left Femur: Normal. No fracture. No lytic or blastic process. SOFT TISSUES: Right Femur: Normal. Left Femur: Normal. OTHER FINDINGS: None. IMPRESSION: Normal radiographs of the femurs.
--- NOTE | 2017-03-10 14:14 | RAD ---
PROCEDURE: Radiographs of the pelvis and bilateral hips HISTORY: pain COMPARISON: None. FINDINGS: BONES: Diffuse osteopenia suggests osteoporosis. There is no acute fracture dislocation of either hip joint with degenerate changes identified moderately at the bilateral sacroiliac and hip joints. No suspicious lytic or blastic change. JOINTS: Degenerate change identified in the bilateral sacroiliac and hip joints. Pubic symphysis: Unremarkable. SOFT TISSUES: Calcified uterine fibroid suggested in the left paracentral pelvis soft tissues inferiorly. OTHER FINDINGS: None. IMPRESSION: No fracture of the pelvic ring or either hip. No dislocation of either hip. Diffuse osteopenia suggests osteoporosis. Incidental note is made of uterine fibroid.
--- NOTE | 2017-03-10 14:16 | RAD ---
PROCEDURE: Radiographs of the Lumbar Spine. HISTORY: pain COMPARISON: No prior. FINDINGS: BONES: Normal alignment. No listhesis. No fracture. DISC SPACES: Multilevel endplate sclerosis and spondylosis indicates degenerate disease affecting the upper and central levels more so than inferiorly. OTHER FINDINGS: None. IMPRESSION: No fracture or spondylolisthesis. 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
[2017-03-11] MEDS: Morphine 4 mg/ml ISec IVP PRN ×2 (02:41→10:14)
[2017-03-11] MEDS: Pantoprazole 40 mg EC Tab PO SCH (05:47)
[2017-03-11] MEDS: oxyCODONE 5 mg Immediate Release Tab PO PRN ×2 (07:00→14:09)
[2017-03-11 07:05] LABS: BASO # 0.09 K/mm3 (0.0-2.0); BASO % 0.8 % (0.0-3.0); EOS # 0.1 (0.0-0.7); EOS % 0.8 % (1.5-5.0); GRAN # 7.91 (1.4-6.5); LYMPH # 2.2 (1.2-3.4); LYMPH % 18.8 % (22.0-35.0); MEAN CELL VOLUME 88.9 fL (80.0-105.0); MEAN CORPUSCULAR HGB CONC 32.6 g/dl (31.0-37.0); MEAN PLATELET VOLUME 10.1 fl (7.0-11.0); MONO # 1.4 (0.1-0.6); MONO % 11.6 % (1.0-6.0); PLATELET COUNT 376 10^3/uL (120.0-450.0); RBC 3.79 10^6/uL (3.5-6.1); RED CELL DISTRIBUTION WIDTH 13.6 % (11.5-14.5); WHITE BLOOD COUNT 11.6 10^3/ul (4.5-11.0)
[2017-03-11 07:25] LABS: ALB/GLOB RATIO 0.9 (1.1-1.8); ALBUMIN 3.8 g/dL (3.0-4.8); ALT/SGPT 56 U/L (7-56); AST/SGOT 58 U/L (15-39); BLOOD UREA NITROGEN 13 mg/dL (7-21); CALCIUM 9.1 mg/dL (8.4-10.5); GFR AFRICAN-AMERICAN > 60; GFR NON-AFRICAN AMERICAN > 60
[2017-03-11] MEDS: Budesonide 0.5 mg/2 ml Inhal Susp UD IH SCH ×2 (07:51→20:32)
[2017-03-11] MEDS: Arformoterol 15 mcg/2 ml Inh Sol IH SCH ×2 (07:51→20:32)
[2017-03-11] MEDS: Lactobacillus Acidophilus 500 MU Cap PO SCH (10:01)
[2017-03-11] MEDS: POLYETHYLENE GLYCOL 3350 17 GM/Dose PACKET PO SCH (10:06)
--- NOTE | 2017-03-11 11:57 | CP.PCM.PN ---
Subjective - Date & Time of Evaluation Date of Evaluation: 03/11/17 Time of Evaluation: 11:55 - Subjective Subjective: Pt complaining of low back pain radiating down left leg. Pt has a hx of lumbar spine issues. PE: Neuro: intact + SLR on left for back pain only thighs soft NT R calf: still with mild/mod tenderness still with swelling Lumbar Pain with radiculopathy Pt refuses mri Will get CT of ls spine Medrol dose jessica PT for OOB,gait training Discussed with medical service Objective - Vital Signs/Intake and Output Vital Signs (last 24 hours): Temp Pulse Resp BP Pulse Ox 97.6 F 92 H 14 125/59 L 99 03/11/17 10:26 03/11/17 10:26 03/11/17 10:26 03/11/17 10:26 03/11/17 10:26 Intake and Output: 03/11/17 03/11/17 06:59 18:59 Intake Total 420 Balance 420 - Medications Medications: Current Medications Al Hydrox/Mg Hydrox/Simethicone (Maalox Plus 30 Ml) 15 ml PO Q8H PRN PRN Reason: Indigestion / Heartburn Amitriptyline HCl (Elavil) 10 mg PO DAILY PRN PRN Reason: GI distress Arformoterol Tartrate (Brovana) 15 mcg IH [id number] [facility] Last Admin: 03/11/17 07:51 Dose: 15 mcg Baclofen (Lioresal) 5 mg PO TID [facility] Last Admin: 03/11/17 10:06 Dose: 5 mg Budesonide (Pulmicort Respules) 0.5 mg IH [id number] [facility] Last Admin: 03/11/17 07:51 Dose: 0.5 mg Docusate Sodium (Colace) 100 mg PO BID [facility] Last Admin: 03/11/17 10:01 Dose: 100 mg Home Med (Home Med) 1 unit PO QWK [facility] Home Med (Home Med) 1 unit PO QWK [facility] Ketorolac Tromethamine (Toradol) 15 mg IVP Q6H PRN PRN Reason: MOD PAIN Lactobacillus Acidophilus (Bacid Acidophilus) 1 cap PO DAILY [facility] Last Admin: 03/11/17 10:01 Dose: 1 cap Meclizine HCl (Antivert) 12.5 mg PO DAILY PRN PRN Reason: Dizziness Montelukast Sodium (Singulair) 10 mg PO DAILY PRN PRN Reason: Shortness of Breath Morphine Sulfate (Morphine) 4 mg IVP Q6H PRN PRN Reason: Pain, severe (8-10) Last Admin: 03/11/17 10:14 Dose: 4 mg Ondansetron HCl (Zofran Inj) 4 mg IVP Q4H PRN PRN Reason: Nausea/Vomiting Oxycodone HCl (Oxycodone Immediate Release Tab) 5 mg PO Q6H PRN PRN Reason: Pain, severe (8-10) Last Admin: 03/11/17 07:00 Dose: 5 mg Pantoprazole Sodium (Protonix Ec Tab) 40 mg PO 0600 [facility] Last Admin: 03/11/17 05:47 Dose: 40 mg Polyethylene Glycol (Miralax) 17 gm PO QOTHERDAY [facility] Last Admin: 03/11/17 10:06 Dose: 17 gm Sertraline HCl (Zoloft) 50 mg PO DAILY [facility] Last Admin: 03/11/17 10:06 Dose: 50 mg - Labs Labs: 03/11/17 06:45 03/11/17 06:45
[2017-03-11 12:03] LABS: HEPATITIS B SURFACE AG NEGATIVE (NEGATIVE)
[2017-03-11 12:08] LABS: HEPATITIS A IGM NEGATIVE (NEGATIVE)
[2017-03-11 12:09] LABS: HEPATITIS B CORE AB NEGATIVE (NEGATIVE)
[2017-03-11 12:21] LABS: HEPATITIS C ANTIBODY NEGATIVE (NEGATIVE)
[2017-03-11] MEDS: Enoxaparin 40 mg Syringe SC SCH (14:58)
--- NOTE | 2017-03-11 15:49 | US ---
HISTORY: Leg pain and swelling. Evaluate for DVT PHYSICIAN(S): Juno Hyatt MD. TECHNIQUE: Duplex sonography and color-flow Doppler with graded compression were used to evaluate the deep venous systems of both lower extremities. FINDINGS: The visualized deep venous systems of both lower extremities are sonographically normal and compressible. Normal wave forms and augmentation are seen. There is no sonographic evidence for deep venous thrombosis in the visualized segments of both lower extremities. IMPRESSION: No sonographic evidence for deep venous thrombosis in the visualized segments of both lower extremities.
[2017-03-12] MEDS: Morphine 4 mg/ml ISec IVP PRN (04:27)
[2017-03-12] MEDS: Pantoprazole 40 mg EC Tab PO SCH (06:09)
[2017-03-12] MEDS: Arformoterol 15 mcg/2 ml Inh Sol IH SCH ×2 (07:36→20:07)
[2017-03-12] MEDS: Budesonide 0.5 mg/2 ml Inhal Susp UD IH SCH ×2 (07:36→20:07)
[2017-03-12] MEDS ORDERED: Morphine 2 mg/ml ISec IVP PRN (08:57)
[2017-03-12] MEDS: Lactobacillus Acidophilus 500 MU Cap PO SCH (10:02)
[2017-03-12] MEDS: Enoxaparin 40 mg Syringe SC SCH (10:03)
--- NOTE | 2017-03-12 13:36 | CP.PCM.PN ---
<Vernon Henry - Last Filed: 03/12/17 13:51> Subjective - Date & Time of Evaluation Date of Evaluation: 03/12/17 Time of Evaluation: 07:00 - Subjective Subjective: Pt is s/e at bedside on TCU floor. No acute events overnight. Past 24H the patient was scheduled for CT scan for which she did not complete because she could not tolerate pain with transfering from chair to table. Patient continues to complain of pain related to her hematoma of her left lower extremity. She indicates also she has acute low back pain. Patient reports she does feel improvement in her pain related to movement of her extremities. She denies chest pain, shortness of breath, abdominal pain, nausea and fever. Objective - Vital Signs/Intake and Output Vital Signs (last 24 hours): Temp Pulse Resp BP Pulse Ox 98.7 F 78 18 115/63 95 03/12/17 10:21 03/12/17 10:21 03/12/17 10:21 03/12/17 10:21 03/12/17 10:21 - Medications Medications: Current Medications Al Hydrox/Mg Hydrox/Simethicone (Maalox Plus 30 Ml) 15 ml PO Q8H PRN PRN Reason: Indigestion / Heartburn Amitriptyline HCl (Elavil) 10 mg PO DAILY PRN PRN Reason: GI distress Arformoterol Tartrate (Brovana) 15 mcg IH [id number] [facility] Last Admin: 03/12/17 07:36 Dose: 15 mcg Baclofen (Lioresal) 5 mg PO TID [facility] Last Admin: 03/12/17 10:03 Dose: 5 mg Budesonide (Pulmicort Respules) 0.5 mg IH [id number] [facility] Last Admin: 03/12/17 07:36 Dose: 0.5 mg Docusate Sodium (Colace) 100 mg PO BID [facility] Last Admin: 03/12/17 10:02 Dose: 100 mg Enoxaparin Sodium (Lovenox) 40 mg SC DAILY [facility] PRN Reason: Protocol Last Admin: 03/12/17 10:03 Dose: 40 mg Home Med (Home Med) 1 unit PO QWK [facility] Home Med (Home Med) 1 unit PO QWK [facility] Ketorolac Tromethamine (Toradol) 15 mg IVP Q6H PRN PRN Reason: MOD PAIN Last Admin: 03/11/17 17:52 Dose: 15 mg Lactobacillus Acidophilus (Bacid Acidophilus) 1 cap PO DAILY [facility] Last Admin: 03/12/17 10:02 Dose: 1 cap Meclizine HCl (Antivert) 12.5 mg PO DAILY PRN PRN Reason: Dizziness Methylprednisolone (Medrol) 4 mg PO 5XD [facility] PRN Reason: Taper Stop: 03/17/17 08:08 Last Admin: 03/12/17 10:04 Dose: 4 mg Montelukast Sodium (Singulair) 10 mg PO DAILY PRN PRN Reason: Shortness of Breath Morphine Sulfate (Morphine) 2 mg IVP Q6H PRN PRN Reason: Pain, severe (8-10) Ondansetron HCl (Zofran Inj) 4 mg IVP Q4H PRN PRN Reason: Nausea/Vomiting Oxycodone HCl (Oxycodone Immediate Release Tab) 5 mg PO Q6H PRN PRN Reason: Pain, severe (8-10) Last Admin: 03/11/17 14:09 Dose: 5 mg Pantoprazole Sodium (Protonix Ec Tab) 40 mg PO 0600 [facility] Last Admin: 03/12/17 06:09 Dose: 40 mg Polyethylene Glycol (Miralax) 17 gm PO QOTHERDAY [facility] Last Admin: 03/11/17 10:06 Dose: 17 gm Sertraline HCl (Zoloft) 50 mg PO DAILY [facility] Last Admin: 03/12/17 10:05 Dose: 50 mg - Labs Labs: 03/11/17 06:45 03/11/17 06:45 - Head Exam Head Exam: ATRAUMATIC, NORMAL INSPECTION, NORMOCEPHALIC - Eye Exam Eye Exam: EOMI, Normal appearance - ENT Exam ENT Exam: Mucous Membranes Moist - Neck Exam Neck Exam: Full ROM - Respiratory Exam Respiratory Exam: Clear to Ausculation Bilateral, NORMAL BREATHING PATTERN - Cardiovascular Exam Cardiovascular Exam: REGULAR RHYTHM, +S1, +S2 - GI/Abdominal Exam GI & Abdominal Exam: Soft, Normal Bowel Sounds - Extremities Exam Extremities Exam: Normal Capillary Refill, Tenderness (Left lower extremity 2/2 hematoma, skin is warm and dry). absent: Joint Swelling - Back Exam Back Exam: paraspinal tenderness (lower lumbar bilateral ) - Neurological Exam Neurological Exam: Alert, Awake, CN II-XII Intact, Oriented x3 Neuro motor strength exam: Left Upper Extremity: 5, Right Upper Extremity: 5, Left Lower Extremity: 5, Right Lower Extremity: 5 - Psychiatric Exam Psychiatric exam: Normal Affect, Normal Mood - Skin Skin Exam: Dry, Warm Assessment and Plan - Assessment and Plan (Free Text) Assessment: Patient is a 76 year old female with pmh of gastritis, GERD, sinusitis and COPD who has been recently diagnosed with a hematoma in her Right gastocnemius and and torn meniscus in right knee and is currently receiving PT, OT in TCU. Plan: 1. TCU for deconditioning - c/o back pain and LE pain - f/u xray of femur, hip, and LS is negative for acute findings - Cont rehab - PT and OT 2. Right Gastrocnemius Hematoma - Pain control -No evidence of compartmental syndrome, with a pressure of 13 -Venous duplex showed no evidence of DVT -CT Angio showed no aneurysmal dilatation, dissection, or significant inflow disease -MRI of R knee showed linear tear in anterior horn of lateral meniscus and synovial cyst posterior to PCL -MRI of RLE showed hematoma in head of gastrocnemius with extensive surrounding edema -Ortho, Dr. Mcgraw, states that patient is safe for discharge outp pt f/u 3. History of Gastritis -Maalox PRN -Protonix 40 mg daily 4. COPD -Cont home Singulair and Brovana -Maintain O2 sat >90% 5. Constipation - patient reports stool every day - continue to monitor 6. GI/DVT Prophylaxis -Protonix/scd's <Lisa Burns - Last Filed: 03/12/17 15:22> Objective - Vital Signs/Intake and Output Vital Signs (last 24 hours): Temp Pulse Resp BP Pulse Ox 98.7 F 78 18 115/63 95 03/12/17 10:21 03/12/17 10:21 03/12/17 10:21 03/12/17 10:21 03/12/17 10:21 - Medications Medications: Current Medications Al Hydrox/Mg Hydrox/Simethicone (Maalox Plus 30 Ml) 15 ml PO Q8H PRN PRN Reason: Indigestion / Heartburn Amitriptyline HCl (Elavil) 10 mg PO DAILY PRN PRN Reason: GI distress Arformoterol Tartrate (Brovana) 15 mcg IH [id number] [facility] Last Admin: 03/12/17 07:36 Dose: 15 mcg Baclofen (Lioresal) 5 mg PO TID [facility] Last Admin: 03/12/17 14:20 Dose: 5 mg Budesonide (Pulmicort Respules) 0.5 mg IH [id number] [facility] Last Admin: 03/12/17 07:36 Dose: 0.5 mg Docusate Sodium (Colace) 100 mg PO BID [facility] Last Admin: 03/12/17 10:02 Dose: 100 mg Enoxaparin Sodium (Lovenox) 40 mg SC DAILY [facility] PRN Reason: Protocol Last Admin: 03/12/17 10:03 Dose: 40 mg Home Med (Home Med) 1 unit PO QWK [facility] Home Med (Home Med) 1 unit PO QWK [facility] Ketorolac Tromethamine (Toradol) 15 mg IVP Q6H PRN PRN Reason: MOD PAIN Last Admin: 03/11/17 17:52 Dose: 15 mg Lactobacillus Acidophilus (Bacid Acidophilus) 1 cap PO DAILY [facility] Last Admin: 03/12/17 10:02 Dose: 1 cap Meclizine HCl (Antivert) 12.5 mg PO DAILY PRN PRN Reason: Dizziness Methylprednisolone (Medrol) 4 mg PO 5XD [facility] PRN Reason: Taper Stop: 03/17/17 08:08 Last Admin: 03/12/17 13:26 Dose: 4 mg Montelukast Sodium (Singulair) 10 mg PO DAILY PRN PRN Reason: Shortness of Breath Morphine Sulfate (Morphine) 2 mg IVP Q6H PRN PRN Reason: Pain, severe (8-10) Last Admin: 03/12/17 14:16 Dose: 2 mg Ondansetron HCl (Zofran Inj) 4 mg IVP Q4H PRN PRN Reason: Nausea/Vomiting Oxycodone HCl (Oxycodone Immediate Release Tab) 5 mg PO Q6H PRN PRN Reason: Pain, severe (8-10) Last Admin: 03/11/17 14:09 Dose: 5 mg Pantoprazole Sodium (Protonix Ec Tab) 40 mg PO 0600 [facility] Last Admin: 03/12/17 06:09 Dose: 40 mg Polyethylene Glycol (Miralax) 17 gm PO QOTHERDAY [facility] Last Admin: 03/11/17 10:06 Dose: 17 gm Sertraline HCl (Zoloft) 50 mg PO DAILY [facility] Last Admin: 03/12/17 10:05 Dose: 50 mg - Labs Labs: 03/11/17 06:45 03/11/17 06:45 Attending/Attestation - Attestation I have personally seen and examined this patient.: Yes I have fully participated in the care of the patient.: Yes I have reviewed all pertinent clinical information, including history, physical exam and plan: Yes Notes (Text): 03/12/17 15:11 Attending note; Patient seen and examined in TCU. patient is a 76-year-old female with PMHx of gastritis/GERD, sinusitis, and COPD was admitted with left calf and leg pain.She was evaluated earlier in in office by Dr. Mcgraw who instructed pt to go to ED for concerns of compartment syndrome. Venous doppler showed no evidence of DVT -CT Angio showed no aneurysmal dilatation, dissection, or significant inflow disease. MRI of R knee showed linear tear in anterior horn of lateral meniscus and synovial cyst posterior to PCL, MRI of RLE showed hematoma in head of gastrocnemius with extensive surrounding edema. currently getting physical therapy in TCU. Back pain; CT lumbosacral spine ordered. Continue po steroids.
[2017-03-12] MEDS: Morphine 2 mg/ml ISec IVP PRN ×2 (14:16→21:55)
[2017-03-13] MEDS: Pantoprazole 40 mg EC Tab PO SCH (06:07)
[2017-03-13] MEDS: Arformoterol 15 mcg/2 ml Inh Sol IH SCH ×2 (08:29→21:11)
[2017-03-13] MEDS: Budesonide 0.5 mg/2 ml Inhal Susp UD IH SCH ×2 (08:29→21:11)
[2017-03-13] MEDS: Lactobacillus Acidophilus 500 MU Cap PO SCH (10:18)
[2017-03-13] MEDS: Enoxaparin 40 mg Syringe SC SCH (10:19)
[2017-03-13] MEDS: POLYETHYLENE GLYCOL 3350 17 GM/Dose PACKET PO SCH (10:20)
[2017-03-13] MEDS: Morphine 2 mg/ml ISec IVP PRN (20:08)
[2017-03-14 05:12] LABS: PH,URINE 6.5 (4.7-8.0); URINE BILIRUBIN NEGATIVE (NEGATIVE); URINE BLOOD TRACE-INTACT (NEGATIVE); URINE GLUCOSE (UA) NEGATIVE (NEGATIVE); URINE LEUKOCYTE ESTERASE TRACE Leu/uL (NEGATIVE); URINE NITRATE NEGATIVE (NEGATIVE); URINE PROTEIN NEGATIVE mg/dL (<30 mg/dL)
[2017-03-14 05:17] LABS: URINE APPEARANCE SL CLOUDY (CLEAR); URINE COLOR YELLOW (YELLOW)
[2017-03-14] MEDS: Pantoprazole 40 mg EC Tab PO SCH (05:21)
[2017-03-14 05:22] LABS: URINE RBC 0 - 2 /hpf (0-2)
[2017-03-14] MEDS: Arformoterol 15 mcg/2 ml Inh Sol IH SCH (07:47)
[2017-03-14] MEDS: Budesonide 0.5 mg/2 ml Inhal Susp UD IH SCH (07:47)
--- NOTE | 2017-03-14 09:26 | CP.PCM.PN ---
Subjective - Date & Time of Evaluation Date of Evaluation: 03/14/17 Time of Evaluation: 09:24 - Subjective Subjective: Pt feels much better. Ambulating without assistance. R calf: swelling minimal; less tender neuro intact b/l lower extremities no sig lumobsacral tenderness to palpation cont current care recommend continued PT when pt discharged Objective - Vital Signs/Intake and Output Vital Signs (last 24 hours): Temp Pulse Resp BP Pulse Ox 98.6 F 88 20 116/68 160 H 03/13/17 16:36 03/13/17 16:36 03/13/17 16:36 03/13/17 16:36 03/13/17 16:36 - Medications Medications: Current Medications Al Hydrox/Mg Hydrox/Simethicone (Maalox Plus 30 Ml) 15 ml PO Q8H PRN PRN Reason: Indigestion / Heartburn Amitriptyline HCl (Elavil) 10 mg PO DAILY PRN PRN Reason: GI distress Arformoterol Tartrate (Brovana) 15 mcg IH [id number] [facility] Last Admin: 03/14/17 07:47 Dose: 15 mcg Baclofen (Lioresal) 5 mg PO 0800,1200,1800 [facility] Last Admin: 03/13/17 17:45 Dose: 5 mg Budesonide (Pulmicort Respules) 0.5 mg IH [id number] [facility] Last Admin: 03/14/17 07:47 Dose: 0.5 mg Docusate Sodium (Colace) 100 mg PO BID [facility] Last Admin: 03/13/17 17:44 Dose: 100 mg Home Med (Home Med) 1 unit PO QWK [facility] Home Med (Home Med) 1 unit PO QWK [facility] Ketorolac Tromethamine (Toradol) 15 mg IVP Q6H PRN PRN Reason: MOD PAIN Last Admin: 03/11/17 17:52 Dose: 15 mg Lactobacillus Acidophilus (Bacid Acidophilus) 1 cap PO DAILY [facility] Last Admin: 03/13/17 10:18 Dose: 1 cap Meclizine HCl (Antivert) 12.5 mg PO DAILY PRN PRN Reason: Dizziness Methylprednisolone (Medrol) 4 mg PO TID [facility] PRN Reason: Taper Stop: 03/17/17 08:08 Last Admin: 03/13/17 21:44 Dose: 4 mg Montelukast Sodium (Singulair) 10 mg PO DAILY PRN PRN Reason: Shortness of Breath Morphine Sulfate (Morphine) 2 mg IVP Q6H PRN PRN Reason: Pain, severe (8-10) Last Admin: 03/13/17 20:08 Dose: 2 mg Ondansetron HCl (Zofran Inj) 4 mg IVP Q4H PRN PRN Reason: Nausea/Vomiting Oxycodone HCl (Oxycodone Immediate Release Tab) 5 mg PO Q6H PRN PRN Reason: Pain, severe (8-10) Last Admin: 03/11/17 14:09 Dose: 5 mg Pantoprazole Sodium (Protonix Ec Tab) 40 mg PO 0600 [facility] Last Admin: 03/14/17 05:21 Dose: 40 mg Polyethylene Glycol (Miralax) 17 gm PO QOTHERDAY [facility] Last Admin: 03/13/17 10:20 Dose: 17 gm Sertraline HCl (Zoloft) 50 mg PO DAILY [facility] Last Admin: 03/13/17 10:21 Dose: 50 mg - Labs Labs: 03/11/17 06:45 03/11/17 06:45
[2017-03-14] MEDS: Lactobacillus Acidophilus 500 MU Cap PO SCH (10:12)
[2017-03-14] MEDS: oxyCODONE 5 mg Immediate Release Tab PO PRN ×2 (10:18→21:23)
--- NOTE | 2017-03-14 11:24 | CP.PCM.PN ---
<Vernon Henry - Last Filed: 03/14/17 13:10> Subjective - Date & Time of Evaluation Date of Evaluation: 03/14/17 Time of Evaluation: 11:19 - Subjective Subjective: Patient seen and examined on TCU floor. No acute events overnight. The patient states that her pain is under control and improved from onset. She reports ability to ambulate without difficulty. She denies chest pain, shortness of breath, abdominal pain, nausea, vomiting, or fever. Objective - Vital Signs/Intake and Output Vital Signs (last 24 hours): Temp Pulse Resp BP Pulse Ox 98.2 F 67 18 141/79 97 03/14/17 10:53 03/14/17 10:53 03/14/17 10:53 03/14/17 10:53 03/14/17 10:53 - Medications Medications: Current Medications Al Hydrox/Mg Hydrox/Simethicone (Maalox Plus 30 Ml) 15 ml PO Q8H PRN PRN Reason: Indigestion / Heartburn Amitriptyline HCl (Elavil) 10 mg PO DAILY PRN PRN Reason: GI distress Arformoterol Tartrate (Brovana) 15 mcg IH [id number] [facility] Last Admin: 03/14/17 07:47 Dose: 15 mcg Baclofen (Lioresal) 5 mg PO 0800,1200,1800 [facility] Last Admin: 03/14/17 10:15 Dose: 5 mg Budesonide (Pulmicort Respules) 0.5 mg IH [id number] [facility] Last Admin: 03/14/17 07:47 Dose: 0.5 mg Docusate Sodium (Colace) 100 mg PO BID [facility] Last Admin: 03/14/17 10:12 Dose: 100 mg Home Med (Home Med) 1 unit PO QWK [facility] Home Med (Home Med) 1 unit PO QWK [facility] Ketorolac Tromethamine (Toradol) 15 mg IVP Q6H PRN PRN Reason: MOD PAIN Last Admin: 03/11/17 17:52 Dose: 15 mg Lactobacillus Acidophilus (Bacid Acidophilus) 1 cap PO DAILY [facility] Last Admin: 03/14/17 10:12 Dose: 1 cap Meclizine HCl (Antivert) 12.5 mg PO DAILY PRN PRN Reason: Dizziness Methylprednisolone (Medrol) 4 mg PO TID [facility] PRN Reason: Taper Stop: 03/17/17 08:08 Last Admin: 03/14/17 10:12 Dose: 4 mg Montelukast Sodium (Singulair) 10 mg PO DAILY PRN PRN Reason: Shortness of Breath Morphine Sulfate (Morphine) 2 mg IVP Q6H PRN PRN Reason: Pain, severe (8-10) Last Admin: 03/13/17 20:08 Dose: 2 mg Ondansetron HCl (Zofran Inj) 4 mg IVP Q4H PRN PRN Reason: Nausea/Vomiting Oxycodone HCl (Oxycodone Immediate Release Tab) 5 mg PO Q6H PRN PRN Reason: Pain, severe (8-10) Last Admin: 03/14/17 10:18 Dose: 5 mg Pantoprazole Sodium (Protonix Ec Tab) 40 mg PO 0600 [facility] Last Admin: 03/14/17 05:21 Dose: 40 mg Polyethylene Glycol (Miralax) 17 gm PO QOTHERDAY [facility] Last Admin: 03/13/17 10:20 Dose: 17 gm Sertraline HCl (Zoloft) 50 mg PO DAILY [facility] Last Admin: 03/14/17 10:12 Dose: 50 mg - Labs Labs: 03/11/17 06:45 03/11/17 06:45 - Head Exam Head Exam: ATRAUMATIC, NORMAL INSPECTION - Eye Exam Eye Exam: EOMI, PERRL - ENT Exam ENT Exam: Mucous Membranes Moist, Normal Exam - Neck Exam Neck Exam: Full ROM - Respiratory Exam Respiratory Exam: Clear to Ausculation Bilateral, NORMAL BREATHING PATTERN - Cardiovascular Exam Cardiovascular Exam: REGULAR RHYTHM, +S1, +S2 - Extremities Exam Extremities Exam: Calf Tenderness, Full ROM, Normal Capillary Refill, Normal Inspection Additional comments: decreased leg swelling in right calf from previous exam - Neurological Exam Neurological Exam: Alert, Awake, CN II-XII Intact, Oriented x3 Neuro motor strength exam: Left Upper Extremity: 5, Right Upper Extremity: 5, Left Lower Extremity: 5, Right Lower Extremity: 5 - Psychiatric Exam Psychiatric exam: Normal Affect, Normal Mood - Skin Skin Exam: Dry, Normal Color Assessment and Plan - Assessment and Plan (Free Text) Assessment: Patient is a 76 year old female with pmh of gastritis, GERD, sinusitis and COPD with diagnosis of hematoma in her Right gastocnemius and and torn meniscus in right knee and is currently receiving PT, OT in TCU. Plan: 1. TCU for deconditioning - c/o back pain and LE pain - Cont rehab with PT and OT 2. Right Gastrocnemius Hematoma - Patient swelling diminished today and pain under control - Patient is able to ambulate and continually working with PT and OT - Dr. Mcgraw following with recommendations for discharge and continued PT outpatient 3. History of Gastritis -Maalox PRN -Protonix 40 mg daily 4. COPD -Cont home Singulair and Brovana -Maintain O2 sat >90% 5. Constipation - resolved 6. GI/DVT Prophylaxis -Protonix/scd's <Adryan Burnsantha - Last Filed: 03/14/17 16:34> Objective - Vital Signs/Intake and Output Vital Signs (last 24 hours): Temp Pulse Resp BP Pulse Ox 98.2 F 67 18 141/79 97 03/14/17 10:53 03/14/17 10:53 03/14/17 10:53 03/14/17 10:53 03/14/17 10:53 - Medications Medications: Current Medications Al Hydrox/Mg Hydrox/Simethicone (Maalox Plus 30 Ml) 15 ml PO Q8H PRN PRN Reason: Indigestion / Heartburn Amitriptyline HCl (Elavil) 10 mg PO DAILY PRN PRN Reason: GI distress Arformoterol Tartrate (Brovana) 15 mcg IH [id number] [facility] Last Admin: 03/14/17 07:47 Dose: 15 mcg Baclofen (Lioresal) 5 mg PO 0800,1200,1800 [facility] Last Admin: 03/14/17 12:18 Dose: 5 mg Budesonide (Pulmicort Respules) 0.5 mg IH [id number] [facility] Last Admin: 03/14/17 07:47 Dose: 0.5 mg Docusate Sodium (Colace) 100 mg PO BID [facility] Last Admin: 03/14/17 10:12 Dose: 100 mg Home Med (Home Med) 1 unit PO QWK [facility] Home Med (Home Med) 1 unit PO QWK [facility] Ketorolac Tromethamine (Toradol) 15 mg IVP Q6H PRN PRN Reason: MOD PAIN Last Admin: 03/11/17 17:52 Dose: 15 mg Lactobacillus Acidophilus (Bacid Acidophilus) 1 cap PO DAILY [facility] Last Admin: 03/14/17 10:12 Dose: 1 cap Meclizine HCl (Antivert) 12.5 mg PO DAILY PRN PRN Reason: Dizziness Methylprednisolone (Medrol) 4 mg PO TID [facility] PRN Reason: Taper Stop: 03/17/17 08:08 Last Admin: 03/14/17 14:48 Dose: 4 mg Montelukast Sodium (Singulair) 10 mg PO DAILY PRN PRN Reason: Shortness of Breath Morphine Sulfate (Morphine) 2 mg IVP Q6H PRN PRN Reason: Pain, severe (8-10) Last Admin: 03/14/17 14:48 Dose: 2 mg Ondansetron HCl (Zofran Inj) 4 mg IVP Q4H PRN PRN Reason: Nausea/Vomiting Oxycodone HCl (Oxycodone Immediate Release Tab) 5 mg PO Q6H PRN PRN Reason: Pain, severe (8-10) Last Admin: 03/14/17 10:18 Dose: 5 mg Pantoprazole Sodium (Protonix Ec Tab) 40 mg PO 0600 [facility] Last Admin: 03/14/17 05:21 Dose: 40 mg Polyethylene Glycol (Miralax) 17 gm PO QOTHERDAY [facility] Last Admin: 03/13/17 10:20 Dose: 17 gm Sertraline HCl (Zoloft) 50 mg PO DAILY [facility] Last Admin: 03/14/17 10:12 Dose: 50 mg - Labs Labs: 03/11/17 06:45 03/11/17 06:45 Attending/Attestation - Attestation I have personally seen and examined this patient.: Yes I have fully participated in the care of the patient.: Yes I have reviewed all pertinent clinical information, including history, physical exam and plan: Yes Notes (Text): 03/14/17 16:33 Attending note; Patient seen and examined in TCU. patient is a 76-year-old female with PMHx of gastritis/GERD, sinusitis, and COPD was admitted with left calf and leg pain.She was evaluated earlier in in office by Dr. Mcgraw who instructed pt to go to ED for concerns of compartment syndrome. Venous doppler showed no evidence of DVT -CT Angio showed no aneurysmal dilatation, dissection, or significant inflow disease. MRI of R knee showed linear tear in anterior horn of lateral meniscus and synovial cyst posterior to PCL, MRI of RLE showed hematoma in head of gastrocnemius with extensive surrounding edema. currently getting physical therapy in TCU. Back pain; CT lumbosacral spine showed spinal canal stenosis. Continue po steroids. evaluated by orthopedics today. Patient is ambulating. Prescription for walker given. Plan for discharge tomorrow with close outpatient follow with orthopedics and spine surgeon.
[2017-03-14] MEDS: Morphine 2 mg/ml ISec IVP PRN (14:48)
[2017-03-15] MEDS: Pantoprazole 40 mg EC Tab PO SCH (05:11)
[2017-03-15] MEDS: Budesonide 0.5 mg/2 ml Inhal Susp UD IH SCH (07:44)
[2017-03-15] MEDS: Arformoterol 15 mcg/2 ml Inh Sol IH SCH (07:44)
[2017-03-15] MEDS: Lactobacillus Acidophilus 500 MU Cap PO SCH (10:16)
[2017-03-15] MEDS: POLYETHYLENE GLYCOL 3350 17 GM/Dose PACKET PO SCH (10:17)
[2017-03-15 10:50] VITALS: BP 121/68; PULSE 71; RESP 18; TEMP 98; O2SAT 100
[2017-03-15] MEDS: oxyCODONE 5 mg Immediate Release Tab PO PRN (12:51)
[2017-03-16] MEDS ORDERED: Home Med 1 UNIT PO SCH ×2 (10:00)
== END 2017-03-15 14:30 | disposition home or self-care (01) | DRG 556 ==
LOC: TRCU 16:02
PROVIDERS: ADMIT Internal Medicine; ATTEND Internal Medicine
PROC: F08Z0ZZ Bathing/Showering Techniques Treatment (ICD-10-PCS; 2017-03-11)
PROC: F08Z2ZZ Grooming/Personal Hygiene Treatment (ICD-10-PCS; 2017-03-11)
PROC: F08Z0ZZ Bathing/Showering Techniques Treatment (ICD-10-PCS; 2017-03-11)
PROC: F07Z9FZ Gait Training/Functional Ambulation Treatment using Assistive, Adaptive, Supportive or Protective Equipment (ICD-10-PCS; principal; 2017-03-12)
PROC: F07M6ZZ Therapeutic Exercise Treatment of Musculoskeletal System - Whole Body (ICD-10-PCS; 2017-03-12)
DX: M79.81 Nontraumatic hematoma of soft tissue (principal); J44.9 Chronic obstructive pulmonary disease, unspecified; T79.A0XA Compartment syndrome, unspecified, initial encounter; J32.9 Chronic sinusitis, unspecified; K21.9 Gastro-esophageal reflux disease without esophagitis; K29.70 Gastritis, unspecified, without bleeding; K59.00 Constipation, unspecified; S83.281A Other tear of lateral meniscus, current injury, right knee, initial encounter; M71.30 Other bursal cyst, unspecified site; M48.07 Spinal stenosis, lumbosacral region; Z90.49 Acquired absence of other specified parts of digestive tract; Z87.891 Personal history of nicotine dependence; Z91.040 Latex allergy status; Z98.51 Tubal ligation status; F41.9 Anxiety disorder, unspecified; R53.81 Other malaise

== ENCOUNTER 2018-07-20 17:15 | Emergency (ER) | payer MEDICARE, OTHER ==
[2018-07-20 17:56] VITALS: RESP 18; TEMP 98.9; BMI 34.1
--- NOTE | 2018-07-20 17:59 | ED PDOC ---
Arrival/HPI - General Chief Complaint: Lower Extremity Problem/Injury Historian: Patient - History of Present Illness Narrative History of Present Illness (Text): 07/20/18 17:48 77 y o female Past medical history gastritis, GERD, sinusitis, COPD, presents to Emergency department complaining of L leg and foot pain. States her L foot started hurting last evening on own, denies any inciting factors or hx trauma/fall. States she was able to ambulate on affected foot this am and go to [facility], but states that the pain started worsening as the day went on. States her foot feels "funny". Also states she has associated erythema in the area where her L foot pain started. Also complaining of L leg pain that started in the waiting room of the Emergency department prior to being examined. States pain starts from medial L foot and travels up leg. Rates pain 9/10 currently, describes pain as achy in quality. Denies headache, dizziness, fever, chills, chest pain, sob, nausea, vomiting, d/c, abd pain, urinary complaints, or other symptoms. Past medical history: gastritis, GERD, sinusitis, COPD PSurgHx: cholecystectomy Allergies: NKDA Home meds: Strovite daily, Montelukast 10 mg daily, Dexilant 60 mg daily, Zoloft 100 mg daily, Breo-Ellipta 200-25 mcg/inh daily, Linzess 145 mcg capsule daily, Ergocalciferol 50,000 U q weekly, Ibuprofen 600 mg tid, Meclizine 12.5 mg prn, Xanax 0.5 mg at bedtime prn, Tobramycin/Dexamethasone susp 2.5 in eyes Fam hx: denies Soc hx: former smoker quit 30 y ago; denies EtOH or illicit drug use PMD: Dr. Gayle (Resident at [facility] [place] [facility]) Time/Duration: 24 hours Symptom Onset: Gradual Symptom Course: Worsening Severity Level: 9 Activities at Onset: Rest, Light, Significant Context: Exertion, Home Past Medical History - Provider Review Nursing Documentation Reviewed: Yes - Travel History Have you recently traveled outside [place] w/in the past 3 mons?: No - Infectious Disease Hx of Infectious Diseases: None - Tetanus Immunization Tetanus Immunization: Unknown - Reproductive Menopause: Yes - Cardiac Hx Cardiac Disorders: No - Pulmonary Hx Chronic Obstructive Pulmonary Disease (COPD): Yes - Neurological Hx Neurological Disorder: No - HEENT Hx HEENT Disorder: No - Renal Hx Renal Disorder: No - Endocrine/Metabolic Hx Endocrine Disorders: No - Hematological/Oncological Hx Blood Disorders: No - Integumentary Hx Dermatological Disorder: No - Musculoskeletal/Rheumatological Hx Falls: No - Gastrointestinal Hx Gastrointestinal Disorders: Yes (reflux) - Genitourinary/Gynecological Hx Reproductive Disorders: Yes (tubal ligation) - Psychiatric Hx Anxiety: Yes Hx Substance Use: No - Surgical History Hx Cholecystectomy: Yes - Anesthesia Hx Anesthesia: Yes Hx Anesthesia Reactions: No Hx Malignant Hyperthermia: No Family/Social History - Physician Review Nursing Documentation Reviewed: Yes Family/Social History: No Known Family HX Smoking Status: Former Smoker Hx Alcohol Use: No Hx Substance Use: No Allergies/Home Meds Allergies/Adverse Reactions: Allergies latex Allergy (Verified 02/17/17 15:01) Home Medications: Home Meds Medication Instructions Recorded Confirmed Amitriptyline [Elavil] 10 mg PO DAILY PRN 03/04/17 03/09/17 Ca/D3/Mag#11/Zinc/Subject Scientific Research/[place]/Bor 1 each PO QWK 03/04/17 03/09/17 [Caltrate 600+D Plus Tablet] Dexlansoprazole [Dexilant] 60 mg PO DAILY 03/04/17 03/09/17 Docusate [Colace] 100 mg PO BID 03/04/17 03/09/17 Fluticasone/Salmeterol 250/50 1 puff IH Q12 03/04/17 03/09/17 [Advair Diskus 250/50] Lactobacillus Acidophilus 1 each PO DAILY 03/04/17 03/09/17 [Acidophilus] Meclizine [Antivert] 12.5 mg PO DAILY PRN 03/04/17 03/09/17 Montelukast [Singulair] 10 mg PO DAILY PRN 03/04/17 03/09/17 Multivitamin with Folic Acid [One 400 mcg PO QWK 03/04/17 03/09/17 Daily Multivitamin Tablet] Polyethylene Glycol 3350 [Miralax] 17 gm PO QOTHERDAY 03/04/17 03/09/17 Sertraline [Zoloft] 50 mg PO DAILY 03/04/17 03/09/17 valACYclovir [Valtrex] 500 mg PO DAILY 03/04/17 03/09/17 Review of Systems - Physician Review All systems were reviewed & negative as marked: Yes - Review of Systems Constitutional: absent: Fatigue, Weight Change, Fevers, Night Sweats Eyes: absent: Vision Changes Respiratory: absent: SOB, Cough, Sputum, Wheezing Cardiovascular: Calf Pain. absent: Chest Pain, Palpitations, Edema, NASCIMENTO, Syncope Gastrointestinal: absent: Abdominal Pain, Stool Changes, Constipation, Diarrhea, Nausea, Vomiting Genitourinary Female: absent: Dysuria, Frequency, Hematuria Musculoskeletal: absent: Arthralgias, Back Pain, Myalgias Skin: absent: Rash, Pruritis Neurological: absent: Headache, Dizziness Endocrine: absent: Diaphoresis Hemo/Lymphatic: absent: Adenopathy Physical Exam Vital Signs Reviewed: Yes Vital Signs Temp Pulse Resp BP Pulse Ox 07/20/18 17:25 98.9 F 87 18 149/77 95 Temperature: Afebrile Blood Pressure: Normal Pulse: Regular Respiratory Rate: Normal Appearance: Positive for: Well-Appearing, Non-Toxic, Uncomfortable Pain Distress: Severe Mental Status: Positive for: Alert and Oriented X 3 - Systems Exam Head: Present: Atraumatic, Normocephalic Pupils: Present: PERRL Extroacular Muscles: Present: EOMI Conjunctiva: Present: Normal Mouth: Present: Moist Mucous Membranes Neck: Present: Normal Range of Motion. No: JVD, Lymphadenopathy Respiratory/Chest: Present: Clear to Auscultation, Good Air Exchange. No: Respiratory Distress, Accessory Muscle Use, Wheezes, Rales, Rhonchi Cardiovascular: Present: Regular Rate and Rhythm, Normal S1, S2. No: Murmurs, Rub, Gallop Abdomen: Present: Normal Bowel Sounds. No: Tenderness, Distention, Rebound, Guarding Back: Present: Normal Inspection. No: Paraspinal Tenderness Upper Extremity: Present: Normal Inspection, Normal ROM, NORMAL PULSES, Neurovascularly Intact, Capillary Refill < 2s, Norm 2-Pt Discrimination. No: Cyanosis, Edema Lower Extremity: Present: Normal Inspection, CALF TENDERNESS, NORMAL PULSES, Tenderness (to palpation distal to medial malleolus with associated erythema), Erythema, Neurovascularly Intact, Capillary Refill < 2 s. No: Edema, Temperature Abnormalties Neurological: Present: GCS=15, CN II-XII Intact, Speech Normal, Motor Func Grossly Intact, Normal Sensory Function Skin: Present: Warm, Dry. No: Rashes Psychiatric: Present: Alert, Oriented x 3, Normal Insight, Normal Concentration Medical Decision Making ED Course and Treatment: 07/20/18 18:03 77 y o female Past medical history gastritis, GERD. sinusitis, COPD, presents with L leg and L foot pain x 24 hrs. Plan: -Labs -XRs -Doppler U/s -Tylenol Will continue to monitor. - RAD Interpretation Radiology Orders: 07/20/18 17:46 ANKLE LEFT 3 VIEWS ROUTINE [RAD] Stat FOOT LEFT 3 VIEWS ROUTINE [RAD] Stat 07/20/18 17:47 DUPLEX LOWER EXTRM VEIN LEFT [US] Stat Disposition/Present on Arrival - Present on Arrival Any Indicators Present on Arrival: No History of DVT/PE: No History of Uncontrolled Diabetes: No Urinary Catheter: No History of Decub. Ulcer: No History Surgical Site Infection Following: None - Disposition Have Diagnosis and Disposition been Completed?: No Diagnosis: Leg pain Disposition Time: 18:42 Condition: GUARDED Forms: [email or web address] (Greek)
[2018-07-20 18:15] LABS: BASO # 0.08 K/mm3 (0.0-2.0); BASO % 0.7 % (0.0-3.0); EOS # 0.1 (0.0-0.7); EOS % 0.8 % (1.5-5.0); GRAN # 8.25 (1.4-6.5); GRAN % 69.6 % (50.0-68.0); HEMOGLOBIN 12.4 g/dL (12.0-16.0); LYMPH # 2.5 (1.2-3.4); MEAN CELL VOLUME 88.4 fl (80.0-105.0); MEAN CORPUSCULAR HEMOGLOBIN 28.3 pg (25.0-35.0); MEAN PLATELET VOLUME 10.2 fl (7.0-11.0); MONO # 0.9 (0.1-0.6); MONO % 7.9 % (1.0-6.0); RBC 4.38 10^6/uL (3.5-6.1); RED CELL DISTRIBUTION WIDTH 14.8 % (11.5-14.5); WHITE BLOOD COUNT 11.8 10^3/uL (4.5-11.0)
[2018-07-20 18:22] LABS: INR 0.99; PARTIAL THROMBOPLASTIN TIME 32.7 Seconds (25.1-36.5); PROTHROMBIN TIME 11.3 SECONDS (9.4-12.5)
[2018-07-20 18:26] LABS: ALBUMIN 4.2 g/dL (3.0-4.8); ALT/SGPT 19 U/L (7-56); AST/SGOT 34 U/L (14-36); BLOOD UREA NITROGEN 14 mg/dL (7-21); CALCIUM 8.9 mg/dL (8.4-10.5); GFR NON-AFRICAN AMERICAN > 60
--- NOTE | 2018-07-20 18:55 | ED PDOC ---
Physical Exam Vital Signs Reviewed: Yes Vital Signs Temp Pulse Resp BP Pulse Ox 07/20/18 17:25 98.9 F 87 18 149/77 95 Temperature: Afebrile Blood Pressure: Normal Pulse: Regular Respiratory Rate: Normal Appearance: Positive for: Well-Appearing, Non-Toxic, Comfortable Pain Distress: None Mental Status: Positive for: Alert and Oriented X 3 - Systems Exam Head: Present: Atraumatic, Normocephalic Pupils: Present: PERRL Extroacular Muscles: Present: EOMI Conjunctiva: Present: Normal Mouth: Present: Moist Mucous Membranes Neck: Present: Normal Range of Motion Respiratory/Chest: Present: Clear to Auscultation, Good Air Exchange. No: Respiratory Distress, Accessory Muscle Use Cardiovascular: Present: Regular Rate and Rhythm, Normal S1, S2. No: Murmurs Abdomen: No: Tenderness, Distention, Peritoneal Signs Back: Present: Normal Inspection Upper Extremity: Present: Normal Inspection. No: Cyanosis, Edema Lower Extremity: Present: Normal Inspection. No: Edema Neurological: Present: GCS=15, CN II-XII Intact, Speech Normal Skin: Present: Warm, Dry, Normal Color. No: Rashes Psychiatric: Present: Alert, Oriented x 3, Normal Insight, Normal Concentration Medical Decision Making ED Course and Treatment: 07/20/18 18:54 Case endorsed to me by Dr. Alonso, pending radiology reports. 07/20/18 20:40 Reviewed radiology, XR Left Ankle shows no acute processes, no fractures. XR Left Foot shows no acute processes, no fractures. 07/20/18 20:46 On re-evaluation, patient feels better and is in no acute distress. I have discussed the results and plan with the patient, who expresses understanding. Patient in agreement with plan to be discharged home. Patient is stable for discharge. Patient was instructed to follow up with Dr. Mcgraw or return if symptoms worsen or new concerning symptoms arise. - Lab Interpretations Lab Results: 07/20/18 18:05 07/20/18 18:05 Lab Results 07/20/18 18:05: Sodium 140, Potassium 3.9, Chloride 108 H, Carbon Dioxide 24, Anion Gap 12, BUN 14, Creatinine 0.7, Est GFR ( Amer) > 60, Est GFR (Non- Af Amer) > 60, Random Glucose 120 H, Calcium 8.9, Total Bilirubin 0.2, AST 34, ALT 19, Alkaline Phosphatase 131 H, Total Protein 8.5 H, Albumin 4.2, Globulin 4.3, Albumin/Globulin Ratio 1.0 L 07/20/18 18:05: PT 11.3, INR 0.99, APTT 32.7 07/20/18 18:05: WBC 11.8 H, RBC 4.38, Hgb 12.4, Hct 38.7, MCV 88.4, MCH 28.3, MCHC 32.0, RDW 14.8 H, Plt Count 330, MPV 10.2, Gran % 69.6 H, Lymph % (Auto) 21.0 L, [place] % (Auto) 7.9 H, Eos % (Auto) 0.8 L, Baso % (Auto) 0.7, Gran # 8.25 H, Lymph # (Auto) 2.5, [place] # (Auto) 0.9 H, Eos # (Auto) 0.1, Baso # (Auto) 0.08 - RAD Interpretation Radiology Orders: 07/20/18 17:46 ANKLE LEFT 3 VIEWS ROUTINE [RAD] Stat FOOT LEFT 3 VIEWS ROUTINE [RAD] Stat 07/20/18 17:47 DUPLEX LOWER EXTRM VEIN LEFT [US] 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 I have reviewed the chart and agree that the record accurately reflects my personal performance of the history, physical exam, medical decision making, and the department course for this patient. I have also personally directed, reviewed, and agree with the discharge instructions and disposition. Disposition/Present on Arrival - Present on Arrival Any Indicators Present on Arrival: No History of DVT/PE: No History of Uncontrolled Diabetes: No Urinary Catheter: No History of Decub. Ulcer: No History Surgical Site Infection Following: None - Disposition Have Diagnosis and Disposition been Completed?: Yes Diagnosis: Foot pain, left Disposition: HOME/ ROUTINE Disposition Time: 20:45 Condition: GUARDED Discharge Instructions (ExitCare): Muscle and Bone Pain (DC) Additional Instructions: follow up with dr lopez Prescriptions: Cephalexin [Keflex] 500 mg PO BID #14 capsule Tramadol HCl [Ultram] 50 mg PO QID #12 tab Forms: [employer] (Tajik)
[2018-07-20] MEDS ORDERED: TraMADol/Apap 37.5/325 mg Tab PO STA (20:02)
[2018-07-20 20:47] VITALS: BP 135/80; PULSE 78; O2SAT 96
--- NOTE | 2018-07-21 09:03 | RAD ---
Date of service: 07/20/2018 PROCEDURE: Left Foot Radiographs. HISTORY: L foot pain COMPARISON: None. FINDINGS: BONES: Normal. No fracture. JOINTS: Mild arthritic degenerative changes noted. SOFT TISSUES: Normal. OTHER FINDINGS: None. IMPRESSION: No evidence of acute fracture or dislocation.
--- NOTE | 2018-07-21 09:05 | RAD ---
Date of service: 07/20/2018 PROCEDURE: Left Ankle Radiographs. HISTORY: L ankle pain COMPARISON: None available. FINDINGS: BONES: Normal. No fracture. JOINTS: Mild arthritic changes.. Ankle mortise maintained. Talar dome intact SOFT TISSUES: Mild soft tissue swelling. OTHER FINDINGS: None. IMPRESSION: No evidence of acute fracture or dislocation.
--- NOTE | 2018-07-21 09:21 | US ---
PROCEDURE: Left lower extremity venous US HISTORY: Leg pain and swelling. Evaluate for DVT. PHYSICIAN(S): Juno Hyatt MD. TECHNIQUE: Duplex sonography and color-flow Doppler with graded compression were used to evaluate the deep venous system of the left lower extremity. FINDINGS: The visualized deep venous system of the left lower extremity is sonographically normal and compressible. Normal wave forms and augmentation are seen. There is no sonographic evidence for deep venous thrombosis in the visualized segments of the left lower extremity. IMPRESSION: 1. No sonographic evidence for deep venous thrombosis in the visualized segments of the left lower extremity.
== END 2018-07-20 20:46 | disposition home or self-care (01) ==
LOC: ED 17:15
DX: M79.605 Pain in left leg (principal); K21.9 Gastro-esophageal reflux disease without esophagitis; J44.9 Chronic obstructive pulmonary disease, unspecified; Z87.891 Personal history of nicotine dependence